=== PATIENT | female | born 1980 | race Two or more races ===

== ENCOUNTER 2019-11-30 01:13 | Emergency (ER) | payer MEDICAID ==
[~2019-11-30] VITALS: Ht 175.3 cm; Wt 108.9 kg
[2019-11-30 03:30] LABS: Basophils # (auto) 0 10 ^3/uL (0-0.2); Basophils % (auto) 0.2 % (0.0-2.0); Eosinophils # (auto) 0.2 10 ^3/uL (0-0.8); Eosinophils % (auto) 1.5 % (0.0-7.0); Hematocrit 39.1 % (36.0-46.0); Hemoglobin 13.1 g/dL (12.2-16.2); Lymphocytes # (auto) 1.2 10 ^3/uL (0.4-5.4); Lymphocytes % (auto) 7.5 % (10.0-50.0); Mean Corpuscular Hemoglobin 30.4 pg (28.0-32.0); Mean Corpuscular Hgb Conc. 33.5 g/dL (32.0-36.0); Mean Corpuscular Volume 90.7 fL (80.0-100.0); Monocytes # (auto) 0.6 10 ^3/uL (0-1.3); Monocytes % (auto) 3.6 % (0.0-12.0); Neutrophils # (auto) 13.9 10 ^3/uL (1.6-8.6); Neutrophils % (auto) 87.2 % (37.0-80.0); Platelet Count (auto) 248 10^3/uL (140-450); Red Blood Cells 4.31 10^6/uL (4.0-5.20); Red Cell Distribution Width 14.5 % (11.8-14.3); White Blood Cell 15.9 10^3/uL (4.4-10.8)
[2019-11-30 03:46] LABS: Albumin 3.3 g/dL (3.4-5.0); Potassium 3.7 mmol/L (3.5-5.1)
[2019-11-30 03:51] LABS: BUN/Creatinine Ratio 14.1; Bilirubin, Total 0.5 mg/dL (0.2-1.0); Total Protein 7.1 g/dL (6.4-8.2)
[2019-11-30 04:13] LABS: Urine Bacteria FEW /hpf (None Seen); Urine Blood TRACE /uL (Negative); Urine Mucus FEW (None Seen); Urine Specific Gravity 1.021 (1.001-1.035); Urine WBC 44 /hpf (0 - 5)
[2019-11-30] MEDS ORDERED: MORPHINE SULFATE 4 MG/ML SYR/VIAL IV ONE (04:45)
[2019-11-30] MEDS ORDERED: ONDANSETRON HCL 4 MG/2 ML VIAL IV ONE (04:45)
[2019-11-30 06:29] VITALS: BP 152/93
[2019-11-30] MEDS ORDERED: cefTRIAXone 1GM/50ML D5W 50 ML IV ONE (06:30)
[2019-11-30 08:45] LABS: Alcohol, Urine < 3.0 mg/dL (0-10); Amphetamine Screen, Urine POSITIVE (NEGATIVE); Barbiturate Scree,Urine NEGATIVE (NEGATIVE); Benzodiazephine Screen, Urine NEGATIVE (NEGATIVE); Cocaine Screen, Urine NEGATIVE (NEGATIVE); Opiate Scree,Urine NEGATIVE (NEGATIVE); Phencyclidine Screen, Urine NEGATIVE (NEGATIVE)
[2019-11-30 08:54] LABS: Cannabinoid Screen, Urine POSITIVE (NEGATIVE)
== END 2019-11-30 08:48 | disposition left against medical advice (07) ==
LOC: ER 01:16
DX: R10.31 Right lower quadrant pain (principal); R10.32 Left lower quadrant pain; F17.210 Nicotine dependence, cigarettes, uncomplicated; R00.0 Tachycardia, unspecified; I10 Essential (primary) hypertension; Z98.890 Other specified postprocedural states
CPT/HCPCS: 36415; 74176; 80053; 80307; 81001; 82150; 83690; 84702; 85025; 96365; 96375; 99285; J0696; J2270; J2405

== ENCOUNTER 2020-02-06 16:28 | Emergency (ER) | payer MEDICAID ==
[~2020-02-06] VITALS: Ht 175.3 cm; Wt 104.3 kg
[2020-02-06 16:57] VITALS: BP 166/97
[2020-02-06 18:31] LABS: Basophils # (auto) 0 10 ^3/uL (0-0.2); Basophils % (auto) 0.6 % (0.0-2.0); Eosinophils # (auto) 0.2 10 ^3/uL (0-0.8); Eosinophils % (auto) 3.2 % (0.0-7.0); Hematocrit 40.3 % (36.0-46.0); Hemoglobin 13.5 g/dL (12.2-16.2); Lymphocytes # (auto) 1.7 10 ^3/uL (0.4-5.4); Lymphocytes % (auto) 22.9 % (10.0-50.0); Mean Corpuscular Hemoglobin 30.5 pg (28.0-32.0); Mean Corpuscular Hgb Conc. 33.5 g/dL (32.0-36.0); Monocytes # (auto) 0.5 10 ^3/uL (0-1.3); Monocytes % (auto) 7.1 % (0.0-12.0); Neutrophils % (auto) 66.2 % (37.0-80.0); Nucleated Red Blood Cells % 0.1 %; Platelet Count (auto) 288 10^3/uL (140-450); Red Blood Cells 4.42 10^6/uL (4.0-5.20); Red Cell Distribution Width 14.2 % (11.8-14.3); White Blood Cell 7.6 10^3/uL (4.4-10.8)
[2020-02-06 18:41] LABS: Albumin 3.8 g/dL (3.4-5.0); BUN/Creatinine Ratio 13.7; Calcium 8.4 mg/dL (8.5-10.1); Potassium 3.6 mmol/L (3.5-5.1)
[2020-02-06 18:44] LABS: Bilirubin, Total 0.5 mg/dL (0.2-1.0); Total Protein 7.2 g/dL (6.4-8.2)
[2020-02-06 20:11] LABS: Urine Bacteria FEW /hpf (None Seen); Urine Blood 1+ /uL (Negative); Urine Hyaline Cast FEW /lpf (0 - 2); Urine Mucus FEW (None Seen); Urine Specific Gravity 1.025 (1.001-1.035); Urine WBC 13 /hpf (0 - 5)
[2020-02-06 20:22] LABS: Alcohol, Urine < 3.0 mg/dL (0-10); Amphetamine Screen, Urine POSITIVE (NEGATIVE); Barbiturate Scree,Urine NEGATIVE (NEGATIVE); Benzodiazephine Screen, Urine NEGATIVE (NEGATIVE); Cannabinoid Screen, Urine POSITIVE (NEGATIVE); Cocaine Screen, Urine NEGATIVE (NEGATIVE); Opiate Scree,Urine NEGATIVE (NEGATIVE); Phencyclidine Screen, Urine NEGATIVE (NEGATIVE)
[2020-02-06] MEDS ORDERED: KETOROLAC TROMETH 60MG/2ML VIAL IM ONE (20:30)
[2020-02-06] MEDS ORDERED: cefTRIAXone SOD 1,000 MG VL IM ONE (20:30)
== END 2020-02-06 21:50 | disposition left against medical advice (07) ==
LOC: ER 16:28
DX: R10.30 Lower abdominal pain, unspecified (principal); N39.0 Urinary tract infection, site not specified; E86.0 Dehydration; F12.10 Cannabis abuse, uncomplicated; F15.10 Other stimulant abuse, uncomplicated; F17.200 Nicotine dependence, unspecified, uncomplicated; I10 Essential (primary) hypertension
CPT/HCPCS: 36415; 76856; 80053; 80307; 81001; 84702; 85025; J0696; J1885

== ENCOUNTER 2020-06-11 17:58 | Emergency (ER) | payer MEDICAID ==
[~2020-06-11] VITALS: Ht 175.3 cm; Wt 104.3 kg
[2020-06-11 18:04] VITALS: BP 209/109
[2020-06-11] MEDS ORDERED: cloNIDine HCL 0.1 MG TAB PO ONE (18:15)
[2020-06-11] MEDS ORDERED: cefTRIAXone W LIDOCAINE 750MG IM IM ONE (19:15)
[2020-06-11 19:32] LABS: Urine Bacteria NONE SEEN /hpf (None Seen); Urine Blood Negative /uL (Negative); Urine Mucus FEW (None Seen); Urine WBC 2 /hpf (0 - 5)
[2020-06-13 06:06] LABS: RPR Non Reactive (Non Reactive)
== END 2020-06-11 20:08 | disposition left against medical advice (07) ==
LOC: ER 17:58
DX: N39.0 Urinary tract infection, site not specified (principal); Z53.21 Procedure and treatment not carried out due to patient leaving prior to being seen by health care provider
CPT/HCPCS: 81001; 86592; 87491; 87591; J0696

== ENCOUNTER 2021-10-14 02:29 | Emergency (ER) | payer MEDICAID ==
[2021-10-15] MEDS ORDERED: NAP500T PO (17:03)
[2021-10-15] MEDS ORDERED: ATEN-60 PO (17:03)
[2021-10-15] MEDS ORDERED: OLME40TA26 PO (17:03)
== END 2021-10-14 03:38 | disposition left against medical advice (07) ==
LOC: ER 02:29
DX: R22.2 Localized swelling, mass and lump, trunk (principal); Z53.21 Procedure and treatment not carried out due to patient leaving prior to being seen by health care provider

== ENCOUNTER 2021-10-15 08:19 | Emergency (ER) | payer MEDICAID ==
[~2021-10-15] VITALS: Ht 175.3 cm; Wt 111.0 kg
[2021-10-15] MEDS ORDERED: cloNIDine HCL 0.1 MG TAB PO ONE (09:00)
[2021-10-15 09:16] LABS: Basophils # (auto) 0.1 10 ^3/uL (0-0.2); Basophils % (auto) 0.6 % (0.0-2.0); Eosinophils # (auto) 0.4 10 ^3/uL (0-0.8); Eosinophils % (auto) 4.1 % (0.0-7.0); Hematocrit 40.6 % (36.0-46.0); Hemoglobin 13.3 g/dL (12.2-16.2); Lymphocytes # (auto) 1.9 10 ^3/uL (0.4-5.4); Lymphocytes % (auto) 20.3 % (10.0-50.0); Mean Corpuscular Hemoglobin 29.9 pg (28.0-32.0); Mean Corpuscular Hgb Conc. 32.8 g/dL (32.0-36.0); Mean Corpuscular Volume 91.1 fL (80.0-100.0); Monocytes # (auto) 0.6 10 ^3/uL (0-1.3); Monocytes % (auto) 6.2 % (0.0-12.0); Neutrophils # (auto) 6.5 10 ^3/uL (1.6-8.6); Neutrophils % (auto) 68.8 % (37.0-80.0); Red Blood Cells 4.45 10^6/uL (4.0-5.20); Red Cell Distribution Width 13.5 % (11.8-14.3); White Blood Cell 9.5 10^3/uL (4.4-10.8)
[2021-10-15 09:34] LABS: Albumin 3.7 g/dL (3.4-5.0); Calcium 8.5 mg/dL (8.5-10.1); Potassium 3.7 mmol/L (3.5-5.1)
[2021-10-15 09:38] LABS: BUN/Creatinine Ratio 12.5; Bilirubin, Total 0.4 mg/dL (0.2-1.0)
[2021-10-15] MEDS ORDERED: LABETALOL HCL 5 MG/ML 4ML SYRINGE IV ONE (11:00)
[2021-10-15 11:15] LABS: Urine Bacteria NONE SEEN /hpf (None Seen); Urine Blood Negative /uL (Negative); Urine WBC 2 /hpf (0 - 5)
[2021-10-15 11:22] LABS: Alcohol, Urine < 3.0 mg/dL (0-10); Amphetamine Screen, Urine POSITIVE (NEGATIVE); Barbiturate Scree,Urine NEGATIVE (NEGATIVE); Benzodiazephine Screen, Urine NEGATIVE (NEGATIVE); Cannabinoid Screen, Urine NEGATIVE (NEGATIVE); Cocaine Screen, Urine NEGATIVE (NEGATIVE); Opiate Scree,Urine NEGATIVE (NEGATIVE); Phencyclidine Screen, Urine NEGATIVE (NEGATIVE)
[2021-10-15] MEDS ORDERED: hydrALAZINE HCL 20 MG/ML VL IV ONE (11:30)
[2021-10-15] MEDS ORDERED: FUROSEMIDE 40 MG/4 ML VIAL IV ONE (14:45)
[2021-10-15] MEDS ORDERED: ATEN-60 PO (17:03)
[2021-10-15] MEDS ORDERED: OLME40TA26 PO (17:03)
[2021-10-15] MEDS ORDERED: NAP500T PO (17:03)
[2021-10-15 17:15] VITALS: BP 161/101
== END 2021-10-15 17:20 | disposition home or self-care (01) ==
LOC: ER 08:19
DX: I10 Essential (primary) hypertension (principal); F15.10 Other stimulant abuse, uncomplicated; N83.202 Unspecified ovarian cyst, left side; F17.210 Nicotine dependence, cigarettes, uncomplicated; F12.10 Cannabis abuse, uncomplicated; Z79.899 Other long term (current) drug therapy
CPT/HCPCS: 36415; 71046; 76856; 80053; 80307; 81001; 83880; 84484; 85025; 93005; 96374; 96375; 99285; J0360; J1940; J3490

== ENCOUNTER 2021-12-20 18:52 | Emergency (ER) | payer MEDICAID ==
[~2021-12-20] VITALS: Ht 175.3 cm; Wt 121.6 kg
[~2021-12-20 18:52] MED LIST: ATEN-60 PO; NAP500T PO; OLME40TA26 PO
[2021-12-20] MEDS ORDERED: TETANUS-DIPTH-ACEL PERTUSSIS 0.5ML SYR Tdap IM ONE (23:00)
[2021-12-20] MEDS ORDERED: HYDROcodone-ACET 5/325MG TAB PO ONE (23:00)
[2021-12-20] MEDS ORDERED: ONDANSETRON ODT 4 MG TAB PO ONE (23:00)
[2021-12-20] MEDS ORDERED: LIDOCAINE 1% HCL (LOCAL ANESTH.) INJ 20ML MDV ID ONE (23:45)
[2021-12-21] MEDS ORDERED: CEPH-510 PO (00:06)
[2021-12-21] MEDS ORDERED: ACET-1158 PO (00:06)
[2021-12-21] MEDS ORDERED: cloNIDine HCL 0.1 MG TAB PO ONE (00:30)
[2021-12-21 01:33] VITALS: BP 190/109
== END 2021-12-21 02:20 | disposition left against medical advice (07) ==
LOC: ER 18:54
DX: S61.210A Laceration without foreign body of right index finger without damage to nail, initial encounter (principal); F12.10 Cannabis abuse, uncomplicated; I10 Essential (primary) hypertension; F17.210 Nicotine dependence, cigarettes, uncomplicated; W22.8XXA Striking against or struck by other objects, initial encounter; Y93.89 Activity, other specified; Y92.89 Other specified places as the place of occurrence of the external cause; Y99.8 Other external cause status
CPT/HCPCS: 12001; 73140; 90471; 90715; 99283; J2001; Q0162

== ENCOUNTER 2023-02-16 11:58 | Emergency (ER) | payer MEDICAID ==
[~2023-02-16] VITALS: Ht 175.3 cm; Wt 110.2 kg
[~2023-02-16 11:58] MED LIST changes: +ACET500T58 PO; +CEPH-510 PO; -OLME40TA26 PO; +OLME40TA78 PO
[2023-02-16 13:50] LABS: Basophils # (auto) 0.1 10 ^3/uL (0-0.2); Basophils % (auto) 0.3 % (0.0-2.0); Eosinophils # (auto) 0.6 10 ^3/uL (0-0.8); Eosinophils % (auto) 3.4 % (0.0-7.0); Hematocrit 42.8 % (36.0-46.0); Hemoglobin 14.2 g/dL (12.2-16.2); Lymphocytes % (auto) 11.5 % (10.0-50.0); Mean Corpuscular Hemoglobin 29.9 pg (28.0-32.0); Mean Corpuscular Hgb Conc. 33.1 g/dL (32.0-36.0); Mean Corpuscular Volume 90.6 fL (80.0-100.0); Monocytes # (auto) 1.3 10 ^3/uL (0-1.3); Monocytes % (auto) 7.4 % (0.0-12.0); Neutrophils # (auto) 13.5 10 ^3/uL (1.6-8.6); Neutrophils % (auto) 77.4 % (37.0-80.0); Nucleated Red Blood Cells % 0.1 %; Red Blood Cells 4.73 10^6/uL (4.0-5.20); White Blood Cell 17.4 10^3/uL (4.4-10.8)
[2023-02-16 14:11] LABS: Alanine Aminotransferase 20 U/L (7-40); Albumin 4.7 g/dL (3.2-4.8); Alkaline Phosphatase 80 U/L (46-116); Anion Gap 9 (5-15); Aspartate Aminotransferase 14 U/L (13-40); BUN/Creatinine Ratio 12.4 (10.0-20.0); Blood Urea Nitrogen 19 mg/dL (9-23); Calcium 9.3 mg/dL (8.7-10.4); Carbon Dioxide 26 mmol/L (20-30); Chloride 101 mmol/L (98-107); Glucose 87 mg/dL (74-106); Magnesium 1.9 mg/dL (1.6-2.6); Sodium 136 mmol/L (136-145)
[2023-02-16 14:12] LABS: Bilirubin, Total 0.4 mg/dL (0.2-1.0); Total Protein 7.3 g/dL (5.7-8.2)
[2023-02-16 14:43] LABS: Amphetamine Screen, Urine Neg (NEGATIVE); Barbiturate Scree,Urine Neg (NEGATIVE); Benzodiazephine Screen, Urine Neg (NEGATIVE); Cannabinoid Screen, Urine Neg (NEGATIVE); Cocaine Screen, Urine Neg (NEGATIVE); Opiate Scree,Urine Neg (NEGATIVE); Phencyclidine Screen, Urine Neg (NEGATIVE)
[2023-02-16 14:48] LABS: Urine Bacteria FEW /hpf (None Seen); Urine Blood Negative /uL (Negative); Urine Clarity HAZY (Clear); Urine Color Yellow (Yellow); Urine Hyaline Cast FEW /lpf (0 - 2); Urine Mucus FEW (None Seen); Urine Protein, UAD 1+ (Negative); Urine Specific Gravity 1.024 (1.001-1.035); Urine Urobilinogen Normal (Negative); Urine WBC 4 /hpf (0 - 5); Urine pH 5.5 (5.0-8.0)
[2023-02-16] MEDS ORDERED: CEPHALEXIN 250 MG CAP PO ONE ×2 (17:45→18:10)
[2023-02-16] MEDS ORDERED: CEPH500T PO (17:50)
[2023-02-16] MEDS ORDERED: ACET-1304 PO (17:50)
[2023-02-16] MEDS ORDERED: PHEN95TA10 PO (17:50)
[2023-02-16 18:14] VITALS: BP 111/62; PULSE 94; RESP 18; TEMP 97.8; O2SAT 97
== END 2023-02-16 18:16 | disposition home or self-care (01) ==
LOC: ER 11:58
DX: R55 Syncope and collapse (principal); N39.0 Urinary tract infection, site not specified; I10 Essential (primary) hypertension; Z32.02 Encounter for pregnancy test, result negative; Z79.899 Other long term (current) drug therapy
CPT/HCPCS: 36415; 70450; 80053; 80307; 81001; 81025; 82962; 83735; 84484; 85025; 93005

== ENCOUNTER 2024-04-04 12:55 | Inpatient (IN) | payer MEDICAID ==
[~2024-04-04] VITALS: Ht 175.3 cm; Wt 108.1 kg
[~2024-04-04 12:55] MED LIST changes: +ACET-1304 PO; +CEPH500T PO; +PHEN95TA10 PO
--- NOTE | 2024-04-04 13:29 | ED.PDOC ---
History of Present Illness HPI Comments 43 year old female presents to the ED with a chief complaint of RT suprapubic pain onset today. Patient states she has surgery scheduled next month her inguinal hernia repair, was at work when she began experiencing 10/10 pain, RT suprapubic region. PMHx of HTN. Denies chest pain, shortness of breath, nausea, vomiting, diarrhea, dizziness, blurry vision. No other symptoms or modifying factors present at this time. Chief Complaint: Abdominal Pain Time Seen by MD: 13:03 Primary Care Provider: UNKNOWN Reviewed Notes: Medications, Allergies Allergies: Coded Allergies: NO KNOWN ALLERGIES (Unverified , 05/13/12) Home Meds Active Scripts Acetaminophen (Tylenol Extra Strength) 500 Mg Tab, 500 MG PO QIDPRN for 10 Days, #40 TAB Prov:RACHAEL MCKEON DO 02/16/23 Phenazopyridine Hcl (Azo Tabs) 95 Mg Tab, 95 MG PO TIDPRN PRN for 4 Days, #12 TAB Prov:RACHAEL MCKEON DO 02/16/23 Cephalexin Monohydrate (Cephalexin) 500 Mg Tab, 1 TAB PO QID for 7 Days, #28 TAB Prov:RACHAEL MCKEON DO 02/16/23 Acetaminophen (Acetaminophen) 500 Mg Tab, 500 MG PO QIDP, #30 TAB 0 Refills Prov:CATRACHITA CHAMBERLAIN 12/21/21 Cephalexin ( Keflex 500) 500 Mg Cap, 1 CAP PO BID for 7 Days, #14 CAP 0 Refills Prov:CATRACHITA CHAMBERLAIN 12/21/21 Naproxen (NAPROSYN TABLET) 500 Mg Tb, 1 TAB PO BID for 10 Days, #20 TAB 1 Refill Prov:SRINIVASAN MACK MD 10/15/21 Atenolol (Atenolol) 25 Mg Tab, 1 TAB PO DAILY for 30 Days, #30 TAB 5 Refills Prov:SRINIVASAN MACK MD 10/15/21 Olmesartan Medoxomil (Benicar) 40 Mg Tab, 1 TAB PO DAILY PRN for 30 Days, #30 TAB 5 Refills Prov:SRINIVASAN MACK MD 10/15/21 Information Source: Patient Mode of Arrival: Ambulatory Severity: Moderate Timing: Hours Duration: Since onset Prehospital treatment: None Past Medical History PAST MEDICAL HISTORY: HTN 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 Family History Family History: Unknown Social History Smoker: Non-Smoker Alcohol: Denies ETOH Use Drugs: Denies Drug Use Lives In: Home Constitutional: denies: chills, diaphoresis, fatigue, fever, malaise, sweats, weakness, others EENTM: denies: blurred vision, double vision, ear bleeding, ear discharge, ear drainage, ear pain, ear ringing, eye pain, eye redness, hearing loss, mouth pain, mouth swelling, nasal discharge, nose bleeding, nose congestion, nose pain, photophobia, tearing, throat pain, throat swelling, voice changes, others Respiratory: denies: cough, hemoptysis, orthopnea, SOB at rest, shortness of breath, SOB with excertion, stridor, wheezing, others Cardiovascular: denies: chest pain, dizzy spells, diaphoresis, Dyspnea on exertion, edema, irregular heart beat, left arm pain, lightheadedness, palpitations, PND, syncope, others Gastrointestinal: reports: abdominal pain (RT suprapubic region); denies: abdomen distended, blood streaked bowels, constipated, diarrhea, dysphagia, difficulty swallowing, hematemesis, melena, nausea, poor appetite, poor fluid intake, rectal bleeding, rectal pain, vomiting, others Genitourinary: denies: abnormal vagina bleeding, burning, dyspareunia, dysuria, flank pain, frequency, hematuria, incontinence, pain, , vagina d ischarge, urgency, others Neurological: denies: dizziness, fainting, headache, left sided numbness, left sided weakness, numbness, paresthesia, pre-existing deficit, right sided numbness, right sided weakness, seizure, speech problems, tingling, tremors, weakness, others Musculoskeletal: denies: back pain, gout, joint pain, joint swelling, muscle pain, muscle stiffness, neck pain, others Integumetry: denies: bruises, change in color, change in hair/nails, dryness, laceration, lesions, lumps, rash, wounds, others Allergic/Immunocompromised: denies: Difficulty Healing, Frequent Infections, Hives, Itching, others Hematologic/Lymphatic: denies: anemia, blood clots, easy bleeding, easy bruising, swollen glands, others Endocrine: denies: excessive hunger, excessive sweating, excessive thirst, excessive urination, flushing, intolerance to cold, intolerance to heat, unexplained weight gain, unexplained weight loss, others Psychiatric: denies: anxiety, bipolar disorder, depression, hopeless, panic disorder, schizophrenia, sleepless, suicidal, others All Other Systems: Reviewed and Negative Physical Exam General Appearance: Moderate Distress, Normal, Other (tearful ) HEENT: Normal ENT Inspection, Pharynx Normal, TMs Normal Neck: Full Range of Motion, Non-Tender, Normal, Normal Inspection Respiratory: Chest Non-Tender, Lungs Clear, No Accessory Muscle Use, No Respiratory Distress, Normal Breath Sounds Cardiovascular: No Edema, No JVD, No Murmur, No Gallop, Normal Peripheral Pulses, Regular Rate/Rhythm Breast Exam: Deferred Gastrointestinal: No Organomegaly, No Pulsatile Mass, Normal Bowel Sounds, RLQ (pain) Genitalia: Deferred Pelvic: Deferred Rectal: Deferred Extremities: No calf tenderness, Normal capillary refill, Normal inspection, Normal range of motion, Non-tender, No pedal edema Musculoskeletal : Apperance: Normal 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 Was a procedure done?: No Differential Dx Considerations may include: sbo, pyelonephritis, acute cystitis, nephrolithiasis X-Ray, Labs, Meds, VS Vital Signs Date Time Temp Pulse Resp B/P (MAP) Pulse Ox O2 Delivery O2 Flow Rate FiO2 04/04/24 14:22 70 16 98 Room Air* 0 21 04/04/24 14:18 70 16 132/88 04/04/24 14:11 97.7 70 16 132/88 (103) 96 97.7 04/04/24 14:11 70 16 96 Room Air 04/04/24 14:07 98.3 74 16 126/73 (90) 96 Lab Test 04/04/24 14:32 04/04/24 14:17 Range/Units White Blood Count 7.7 4.4-10.8 10^3/uL Red Blood Count 4.22 4.0-5.20 10^6/uL Hemoglobin 12.9 12.2-16.2 g/dL Hematocrit 38.4 36.0-46.0 % Mean Corpuscular Volume 91.1 80.0-100.0 fL Mean Corpuscular Hemoglobin 30.7 28.0-32.0 pg Mean Corpuscular Hemoglobin Concent 33.7 32.0-36.0 g/dL Red Cell Distribution Width 13.2 11.8-14.3 % Platelet Count 299 140-450 10^3/uL Mean Platelet Volume 9.0 6.9-10.8 fL Neutrophils (%) (Auto) 64.4 37.0-80.0 % Lymphocytes (%) (Auto) 24.2 10.0-50.0 % Monocytes (%) (Auto) 5.4 0.0-12.0 % Eosinophils (%) (Auto) 5.5 0.0-7.0 % Basophils (%) (Auto) 0.5 0.0-2.0 % Neutrophils # (Auto) 5.0 1.6-8.6 10 ^3/uL Lymphocytes # (Auto) 1.9 0.4-5.4 10 ^3/uL Monocytes # (Auto) 0.4 0-1.3 10 ^3/uL Eosinophils # (Auto) 0.4 0-0.8 10 ^3/uL Basophils # (Auto) 0 0-0.2 10 ^3/uL Nucleated Red Blood Cells 0.0 % Prothrombin Time 11.4 9.3-11.8 sec Prothrombin Time INR 1.08 0.9-1.15 Activated Partial Thromboplast Time 27.3 24.5-34.5 SEC Sodium Level 136 136-145 mmol/L Potassium Level 3.9 3.5-5.1 mmol/L Chloride Level 104 98-107 mmol/L Carbon Dioxide Level 24 20-31 mmol/L Anion Gap 8 5-15 Blood Urea Nitrogen 19 9-23 mg/dL Creatinine 0.72 0.550-1.02 mg/dL Glomerular Filtration Rate Calc 107 >90 mL/min BUN/Creatinine Ratio 26.4 H 10.0-20.0 Serum Glucose 93 74-106 mg/dL Lactic Acid Level 0.7 0.4-2.0 mmol/L Calcium Level 9.7 8.7-10.4 mg/dL Total Bilirubin 0.2 0.2-1.0 mg/dL Aspartate Amino Transferase (AST) 22 13-40 U/L Alanine Aminotransferase (ALT) 15 7-40 U/L Alkaline Phosphatase 68 46-116 U/L Total Protein 7.0 5.7-8.2 g/dL Albumin 4.5 3.2-4.8 g/dL Urine Color Light-yellow Yellow Urine Clarity Clear Clear Urine pH 6.5 5.0-9.0 Urine Specific [place] 1.023 1.001-1.035 Urine Protein Negative Negative Urine Ketones Negative Negative Urine Blood Negative Negative /uL Urine Nitrite Negative Negative Urine Bilirubin Negative Negative Urine Urobilinogen Normal Negative mg/dL Urine Leukocyte Esterase Negative Negative /uL Urine RBC 1 0 - 4 /hpf Urine Microscopic WBC < 1 0-5 /HPF Urine Squamous Epithelial Cells Few <5 /hpf Urine Bacteria None seen None Seen /hpf Urine Glucose Normal Normal mg/dL Current Medications Medications (Trade) Dose Ordered Sig/Antonio Route Start Time Stop Time Status Last Admin Morphine Sulfate 4 mg ONCE ONCE IV 04/04/24 13:30 04/04/24 13:47 DC 04/04/24 14:18 [place] [id number] Ph: [phone] DIAGNOSTIC IMAGING Diagnostic Imaging Report : [id number] Signed PATIENT: NICKIE ANGELCCT: [id number] UNIT: [id number] : 1980 LOC: ER ROOM / BED: / AGE / SEX: 43 / F ADM STATUS: REG ER SERVICE 1328 ORDERING PHYSICIAN: PEARL LONG MD PROCEDURE(s): ABPL - CT AB PEL WO CON-NO ORAL OR IV REASON: pain ORDER NUMBER(s): [id number], ACCESSION NUMBER(s): [id number] CT ABDOMEN AND PELVIS WITHOUT CONTRAST CLINICAL HISTORY: pain TECHNIQUE: Multiple contiguous axial images of the abdomen and pelvis without intravenous contrast. The images were reformatted degenerate coronal and sagittal reconstructions. All CT scans at this medical facility are performed using dose modulation techniques as appropriate to a performed exam including the following:Automated exposure control was utilized; adjustment of the MA and/or KV according to patient size; and use of iterative reconstruction technique. Radiation Dose Information: CT Dose: CTDI volume is 14 mGy. Dose-length product is 1298 mGy*cm Comparison: RFIN2 on DOS: 12/20/21, CT ABD PELVIS WO CONTRAST on DOS: 11/30/19 FINDINGS: Evaluation of the abdomen and pelvis is limited without intravenous contrast. There is a moderate size right inguinal hernia containing intra-abdominal fat and a small bowel loop. There are some dilated fluid filled small bowel loops in the right abdomen proximal to the hernia measuring up to 3 cm. The large bowel loops demonstrate normal caliber. There are few scattered diverticula distal colon. The liver, gallbladder, pancreas, kidneys, adrenal glands, and spleen appear within normal limits. There is no gross evidence of abdominal lymphadenopathy. There is no free fluid or free air. The stomach grossly appears unremarkable. The abdominal aorta and IVC appear within normal limits. The bladder appears unremarkable for the degree of distention. Pelvic organ appears within normal limits. There is no gross evidence of a pelvic mass. There is no free fluid collection. Lung bases are clear. There is no acute osseous abnormality. IMPRESSION: 1. Moderate size right inguinal hernia containing intra-abdominal fat and a small bowel loop. This serves as a transition point with some dilated fluid- filled small bowel loops in the right abdomen proximal to the hernia suggesting developing bowel obstruction. Critical findings discussed with Dr. Long by Dr. Robin Pemberton via phone on 04/04/2024 02:22 PM. HS:Y ATED BY: ROBIN PEMBERTON MD DICTATED DATE/TIME: 04/04/241423 SIGNED BY: ROBIN PEMBERTON MD SIGNED DATE/TIME: 04/04/241423 CC: X-Ray, Labs, Meds, VS Comment This 43-year-old female with a known right inguinal hernia presents secondary to acute worsening of the pain in the right inguinal hernia. She states she was usually able to reduce here with a difficulty. However, with the course of stay, she had been unable to reduce the hernia. States the pain is severe. There is some improvements room physicians and worsening with others. She continues to pass flatus. She has no other complaints with the fever, chills, sweats, nausea or vomiting. However, the pain is exquisite. Time of 1ST Reevaluation: 13:33 Reevaluation 1ST: Unchanged Patient Education/Counseling: Diagnosis, Treatment, Prognosis Family Education/Counseling: No Family Present Additional Information The following tests were ordered, and results were reviewed by me: CBC, CMP, UA, CT ABD PEL WO CON, PTPTT, EKG, LA W/ REFLEX I reviewed and agreed with the following test results read by other providers: CT ABD PEL WO CON I discussed treatment and results with medical personnel and patient Departure 1 Departure Time of Disposition: 17:16 Impression: Primary Impression: Small bowel obstruction Additional Impressions: Right inguinal hernia Abdominal pain Disposition: ADMITTED INPATIENT Condition: Guarded Critical Care Note Critical Care Time?: No Stability Stability form required: No Heart Score Heart Score: Heart Score Response (Comments) Value History N/A 0 EKG N/A 0 Age N/A 0 Risk Factors N/A 0 Troponin N/A 0 Total 0 I personally scribed for PEARL LONG MD ([email or web address]) on 04/04/24 at 13:29. Electronically submitted by Carito Miles ([email or web address]). I personally scribed for PEARL LONG MD ([email or web address]) on 04/04/24 at 14:43. Electronically submitted by Carito Miles ([email or web address]). PEARL LONG MD Apr 04, 2024 13:29
[2024-04-04] MEDS: MORPHINE SULFATE 4 MG/ML SYR/VIAL IV ONE ×2 (14:18→17:38)
[2024-04-04 14:22] VITALS: PULSE 70; RESP 16; O2SAT 98
--- NOTE | 2024-04-04 14:27 | DVH ---
CT ABDOMEN AND PELVIS WITHOUT CONTRAST CLINICAL HISTORY: pain TECHNIQUE: Multiple contiguous axial images of the abdomen and pelvis without intravenous contrast. The images were reformatted degenerate coronal and sagittal reconstructions. All CT scans at this medical facility are performed using dose modulation techniques as appropriate t o a performed exam including the following:Automated exposure control was utilized; adjustment of the MA and/or KV according to patient size; and use of iterative reconstruction technique. Radiation Dose Information: CT Dose: CTDI volume is 14 mGy. Dose-length product is 1298 mGy*cm Comparison: RFIN2 on DOS: 12/20/21, CT ABD PELVIS WO CONTRAST on DOS: 11/30/19 FINDINGS: Evaluation of the abdomen and pelvis is limited without intravenous contrast. There is a moderate size right inguinal hernia containing intra-abdominal fat and a small bowel loop. There are some dilated fluid filled small bowel loops in the right abdomen proximal to the hernia me asuring up to 3 cm. The large bowel loops demonstrate normal caliber. There are few scattered diverti cula distal colon. The liver, gallbladder, pancreas, kidneys, adrenal glands, and spleen appear within normal limits. There is no gross evidence of abdominal lymphadenopathy. There is no free fluid or free air. The stomach grossly appears unremarkable. The abdominal aorta and IVC appear within normal limits. The bladder appears unremarkable for the degree of distention. Pelvic organ appears within normal sutton its. There is no gross evidence of a pelvic mass. There is no free fluid collection. Lung bases are clear. There is no acute osseous abnormality. IMPRESSION: 1. Moderate size right inguinal hernia containing intra-abdominal fat and a small bowel loop. This se rves as a transition point with some dilated fluid-filled small bowel loops in the right abdomen pro ximal to the hernia suggesting developing bowel obstruction. Critical findings discussed with Dr. Long by Dr. Robin Pemberton via phone on 04/04/2024 02:22 PM. HS:Y
[2024-04-04 14:52] LABS: Basophils # (auto) 0 10 ^3/uL (0-0.2); Basophils % (auto) 0.5 % (0.0-2.0); Eosinophils # (auto) 0.4 10 ^3/uL (0-0.8); Eosinophils % (auto) 5.5 % (0.0-7.0); Hematocrit 38.4 % (36.0-46.0); Hemoglobin 12.9 g/dL (12.2-16.2); Lymphocytes # (auto) 1.9 10 ^3/uL (0.4-5.4); Lymphocytes % (auto) 24.2 % (10.0-50.0); Mean Corpuscular Hemoglobin 30.7 pg (28.0-32.0); Mean Corpuscular Hgb Conc. 33.7 g/dL (32.0-36.0); Mean Corpuscular Volume 91.1 fL (80.0-100.0); Monocytes # (auto) 0.4 10 ^3/uL (0-1.3); Monocytes % (auto) 5.4 % (0.0-12.0); Neutrophils % (auto) 64.4 % (37.0-80.0); Platelet Count (auto) 299 10^3/uL (140-450); Red Blood Cells 4.22 10^6/uL (4.0-5.20); Red Cell Distribution Width 13.2 % (11.8-14.3); White Blood Cell 7.7 10^3/uL (4.4-10.8)
[2024-04-04 15:06] LABS: INR 1.08 (0.9-1.15); Partial Thromboplastin Time 27.3 SEC (24.5-34.5); Prothrombin Time 11.4 sec (9.3-11.8)
[2024-04-04 15:10] LABS: Alanine Aminotransferase 15 U/L (7-40); Alkaline Phosphatase 68 U/L (46-116); Anion Gap 8 (5-15); Aspartate Aminotransferase 22 U/L (13-40); BUN/Creatinine Ratio 26.4 (10.0-20.0); Blood Urea Nitrogen 19 mg/dL (9-23); Calcium 9.7 mg/dL (8.7-10.4); Carbon Dioxide 24 mmol/L (20-31); Chloride 104 mmol/L (98-107); Glucose 93 mg/dL (74-106); Potassium 3.9 mmol/L (3.5-5.1); Sodium 136 mmol/L (136-145)
[2024-04-04 15:11] LABS: Albumin 4.5 g/dL (3.2-4.8); Bilirubin, Total 0.2 mg/dL (0.2-1.0)
[2024-04-04 15:53] LABS: Urine Bacteria None Seen /hpf (None Seen)
[2024-04-04 16:10] LABS: Urine Blood Negative /uL (Negative); Urine Clarity Clear (Clear); Urine Color Light-Yellow (Yellow); Urine Protein, UAD Negative (Negative); Urine Specific Gravity 1.023 (1.001-1.035); Urine Squamous Epithelial Cell FEW /hpf (<5); Urine Urobilinogen Normal (Negative); Urine WBC < 1 /HPF (0-5); Urine pH 6.5 (5.0-9.0)
[2024-04-04] MEDS: ONDANSETRON HCL 4 MG/2 ML VIAL IV ONE (17:37)
[2024-04-04 19:48] VITALS: PULSE 64; RESP 14; O2SAT 96
[2024-04-04] MEDS ORDERED: ACETAMINOPHEN 325 MG TAB PO PRN (20:00)
[2024-04-04] MEDS ORDERED: HYDROcodone-ACET 5/325MG TAB PO PRN (20:00)
[2024-04-04] MEDS: D5W/LACTATED RINGERS 1,000 ML IV ONE (20:00)
--- NOTE | 2024-04-04 20:07 | DVHHP2 ---
Admitting Diagnosis: Abdominal pain History of Present Illness 43 year old female presents to the ED with a chief complaint of RT suprapubic pain onset today. Patient states she has surgery scheduled next month her inguinal hernia repair, was at work when she began experiencing 10/10 pain, RT suprapubic region. PMHx of HTN. Denies chest pain, shortness of breath, nausea, vomiting, diarrhea, dizziness, blurry vision. No other symptoms or modifying factors present at this time. 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 Family History Family History: Unknown Social History Smoker: Non-Smoker Alcohol: Denies ETOH Use Drugs: Denies Drug Use Lives In: Home Allergies: Coded Allergies: NO KNOWN ALLERGIES (Unverified , 05/13/12) Home Meds Active Scripts Acetaminophen (Tylenol Extra Strength) 500 Mg Tab, 500 MG PO QIDPRN for 10 Days, #40 TAB Prov:RACHAEL MCKEON DO 02/16/23 Phenazopyridine Hcl (Azo Tabs) 95 Mg Tab, 95 MG PO TIDPRN PRN for 4 Days, #12 TAB Prov:PUNEETSARARACHAEL DO 02/16/23 Cephalexin Monohydrate (Cephalexin) 500 Mg Tab, 1 TAB PO QID for 7 Days, #28 TAB Prov:MIKERACHAEL DO 02/16/23 Acetaminophen (Acetaminophen) 500 Mg Tab, 500 MG PO QIDP, #30 TAB 0 Refills Prov:CATRACHITA CHAMBERLAIN 12/21/21 Cephalexin ( Keflex 500) 500 Mg Cap, 1 CAP PO BID for 7 Days, #14 CAP 0 Refills Prov:CATRACHITA CHAMBERLAIN 12/21/21 Naproxen (NAPROSYN TABLET) 500 Mg Tb, 1 TAB PO BID for 10 Days, #20 TAB 1 Refill Prov:SRINIVASAN MACK MD 10/15/21 Atenolol (Atenolol) 25 Mg Tab, 1 TAB PO DAILY for 30 Days, #30 TAB 5 Refills Prov:SRINIVASAN MACK MD 10/15/21 Olmesartan Medoxomil (Benicar) 40 Mg Tab, 1 TAB PO DAILY PRN for 30 Days, #30 TAB 5 Refills Prov:SRINIVASAN MACK MD 10/15/21 Vital Signs Vital Signs Date Time Temp Pulse Resp B/P (MAP) Pulse Ox O2 Delivery O2 Flow Rate FiO2 04/04/24 19:48 64 14 96 Room Air* 0 21 04/04/24 19:47 98.0 101/69 (80) 98.0 Physical Exam 44 years old woman, overweight, lying in bed. Mild distress HEENT-atraumatic normocephalic Heart-regular rate and rhythm Lungs clear to auscultate Abdomen soft, nontender, nondistended. Inguinal hernia resolved Musculoskeletal-no edema cyanosis Neuro-AO x3, no focal deficit Results Labs Test 04/04/24 14:32 04/04/24 14:17 Range/Units White Blood Count 7.7 4.4-10.8 10^3/uL Red Blood Count 4.22 4.0-5.20 10^6/uL Hemoglobin 12.9 12.2-16.2 g/dL Hematocrit 38.4 36.0-46.0 % Mean Corpuscular Volume 91.1 80.0-100.0 fL Mean Corpuscular Hemoglobin 30.7 28.0-32.0 pg Mean Corpuscular Hemoglobin Concent 33.7 32.0-36.0 g/dL Red Cell Distribution Width 13.2 11.8-14.3 % Platelet Count 299 140-450 10^3/uL Mean Platelet Volume 9.0 6.9-10.8 fL Neutrophils (%) (Auto) 64.4 37.0-80.0 % Lymphocytes (%) (Auto) 24.2 10.0-50.0 % Monocytes (%) (Auto) 5.4 0.0-12.0 % Eosinophils (%) (Auto) 5.5 0.0-7.0 % Basophils (%) (Auto) 0.5 0.0-2.0 % Neutrophils # (Auto) 5.0 1.6-8.6 10 ^3/uL Lymphocytes # (Auto) 1.9 0.4-5.4 10 ^3/uL Monocytes # (Auto) 0.4 0-1.3 10 ^3/uL Eosinophils # (Auto) 0.4 0-0.8 10 ^3/uL Basophils # (Auto) 0 0-0.2 10 ^3/uL Nucleated Red Blood Cells 0.0 % Prothrombin Time 11.4 9.3-11.8 sec Prothrombin Time INR 1.08 0.9-1.15 Activated Partial Thromboplast Time 27.3 24.5-34.5 SEC Sodium Level 136 136-145 mmol/L Potassium Level 3.9 3.5-5.1 mmol/L Chloride Level 104 98-107 mmol/L Carbon Dioxide Level 24 20-31 mmol/L Anion Gap 8 5-15 Blood Urea Nitrogen 19 9-23 mg/dL Creatinine 0.72 0.550-1.02 mg/dL Glomerular Filtration Rate Calc 107 >90 mL/min BUN/Creatinine Ratio 26.4 H 10.0-20.0 Serum Glucose 93 74-106 mg/dL Lactic Acid Level 0.7 0.4-2.0 mmol/L Calcium Level 9.7 8.7-10.4 mg/dL Total Bilirubin 0.2 0.2-1.0 mg/dL Aspartate Amino Transferase (AST) 22 13-40 U/L Alanine Aminotransferase (ALT) 15 7-40 U/L Alkaline Phosphatase 68 46-116 U/L Total Protein 7.0 5.7-8.2 g/dL Albumin 4.5 3.2-4.8 g/dL Urine Color Light-yellow Yellow Urine Clarity Clear Clear Urine pH 6.5 5.0-9.0 Urine Specific [place] 1.023 1.001-1.035 Urine Protein Negative Negative Urine Ketones Negative Negative Urine Blood Negative Negative /uL Urine Nitrite Negative Negative Urine Bilirubin Negative Negative Urine Urobilinogen Normal Negative mg/dL Urine Leukocyte Esterase Negative Negative /uL Urine RBC 1 0 - 4 /hpf Urine Microscopic WBC < 1 0-5 /HPF Urine Squamous Epithelial Cells Few <5 /hpf Urine Bacteria None seen None Seen /hpf Urine Glucose Normal Normal mg/dL Primary Diagnosis Small bowel obstruction Reducible right inguinal hernia Plan CT scan shows small bowel obstruction and right inguinal hernia NPO IV fluids IV antiemetic IV pain control Bowel rest Once patient has bowel movement or flatus small-bowel series to evaluate for resolution of small-bowel obstruction Surgery consult for SBO Full code SCD for DVT prophylaxis PPI for GI prophylaxis NPO except meds Plan discussed with: Patient Date of Service: Apr 04, 2024 Billing Provider: KHALIF SULTANA MD Common Visit Codes: [id number] INP/OBS CARE (HIGH) KHALIF SULTANA MD Apr 04, 2024 20:07
[2024-04-04] MEDS: ONDANSETRON HCL 4 MG/2 ML VIAL IV PRN (20:21)
[2024-04-04] MEDS: HYDROmorphone HCL 2 MG/ML VL/or syr IV PRN (20:22)
[2024-04-04] MEDS: DOCUSATE SOD 100 MG CAP PO PRN (20:35)
[2024-04-04 21:41] VITALS: BP 100/57; PULSE 62; RESP 17; TEMP 97.7; O2SAT 97
[2024-04-04 21:44] VITALS: BP 100/57; PULSE 62; RESP 17; TEMP 97.7; O2SAT 91
[2024-04-04] MEDS: MELATONIN 5 MG TAB PO SCH (22:32)
[2024-04-04] MEDS: SODIUM CHLOR 0.9% PF (SALINE LOCK) 10ML VIAL/SYR IV SCH (22:33)
[2024-04-04] MEDS ORDERED: LISI40TA16 PO (23:08)
[2024-04-05 00:17] VITALS: BP 94/46; PULSE 60; RESP 16; TEMP 97.7; O2SAT 92
[2024-04-05 01:00] VITALS: BP 107/61; PULSE 62; RESP 16; TEMP 97.7; O2SAT 98
[2024-04-05 05:00] VITALS: BP 102/55; PULSE 57; RESP 16; TEMP 98; O2SAT 94
[2024-04-05 05:44] LABS: Basophils # (auto) 0 10 ^3/uL (0-0.2); Basophils % (auto) 0.7 % (0.0-2.0); Eosinophils # (auto) 0.5 10 ^3/uL (0-0.8); Eosinophils % (auto) 8.3 % (0.0-7.0); Hematocrit 32.8 % (36.0-46.0); Hemoglobin 11.2 g/dL (12.2-16.2); Lymphocytes # (auto) 1.8 10 ^3/uL (0.4-5.4); Lymphocytes % (auto) 32.2 % (10.0-50.0); Mean Corpuscular Hemoglobin 30.8 pg (28.0-32.0); Mean Corpuscular Hgb Conc. 34.1 g/dL (32.0-36.0); Mean Corpuscular Volume 90.3 fL (80.0-100.0); Monocytes # (auto) 0.4 10 ^3/uL (0-1.3); Neutrophils # (auto) 2.9 10 ^3/uL (1.6-8.6); Neutrophils % (auto) 50.8 % (37.0-80.0); Platelet Count (auto) 255 10^3/uL (140-450); Red Blood Cells 3.63 10^6/uL (4.0-5.20); White Blood Cell 5.6 10^3/uL (4.4-10.8)
[2024-04-05 07:03] LABS: Alanine Aminotransferase 13 U/L (7-40); Albumin 3.6 g/dL (3.2-4.8); Alkaline Phosphatase 50 U/L (46-116); Anion Gap 5 (5-15); Aspartate Aminotransferase 13 U/L (13-40); BUN/Creatinine Ratio 18.8 (10.0-20.0); Bilirubin, Total 0.4 mg/dL (0.2-1.0); Blood Urea Nitrogen 13 mg/dL (9-23); Calcium 9.1 mg/dL (8.7-10.4); Carbon Dioxide 27 mmol/L (20-31); Chloride 106 mmol/L (98-107); Glucose 86 mg/dL (74-106); Potassium 3.9 mmol/L (3.5-5.1); Sodium 138 mmol/L (136-145); Total Protein 5.7 g/dL (5.7-8.2)
[2024-04-05 08:05] VITALS: RESP 17; O2SAT 94
[2024-04-05 09:00] VITALS: BP 106/67; PULSE 62; RESP 16; TEMP 97.6; O2SAT 94
--- NOTE | 2024-04-05 12:11 | DVHINCON2 ---
Date of service: Apr 05, 2024 Family History: Patient reports no known family medical history. Allergies: Coded Allergies: NO KNOWN ALLERGIES (Unverified , 05/13/12) Home Meds Active Scripts Acetaminophen (Tylenol Extra Strength) 500 Mg Tab, 500 MG PO QIDPRN for 10 Days, #40 TAB Prov:RACHAEL MCKEON DO 02/16/23 Phenazopyridine Hcl (Azo Tabs) 95 Mg Tab, 95 MG PO TIDPRN PRN for 4 Days, #12 TAB Prov:RACHAEL MCKEON DO 02/16/23 Cephalexin Monohydrate (Cephalexin) 500 Mg Tab, 1 TAB PO QID for 7 Days, #28 TAB Prov:RACHAEL MCKEON DO 02/16/23 Acetaminophen (Acetaminophen) 500 Mg Tab, 500 MG PO QIDP, #30 TAB 0 Refills Prov:CATRACHITA CHAMBERLAIN 12/21/21 Cephalexin ( Keflex 500) 500 Mg Cap, 1 CAP PO BID for 7 Days, #14 CAP 0 Refills Prov:CATRACHITA CHAMBERLAIN 12/21/21 Naproxen (NAPROSYN TABLET) 500 Mg Tb, 1 TAB PO BID for 10 Days, #20 TAB 1 Refill Prov:SRINIVASAN MACK MD 10/15/21 Atenolol (Atenolol) 25 Mg Tab, 1 TAB PO DAILY for 30 Days, #30 TAB 5 Refills Prov:SRINIVASAN MACK MD 10/15/21 Olmesartan Medoxomil (Benicar) 40 Mg Tab, 1 TAB PO DAILY PRN for 30 Days, #30 TAB 5 Refills Prov:SRINIVASAN MACK MD 10/15/21 Reported Medications Lisinopril (Lisinopril) 40 Mg Tab, 40 MG PO DAILY for 30 Days, MG 04/04/24 Current Medications Current Medications Medications (Trade) Dose Ordered Sig/Antonio Route PRN Reason Start Time Stop Time Status Last Admin Sodium Chloride (Saline Lock Ns) 10 ml Q8HR IV 04/04/24 22:00 04/05/24 06:00 Docusate Sodium (Colace Capsule) 100 mg BIDPRN PRN PO FOR CONSTIPATION 04/04/24 20:00 04/04/24 20:35 Acetaminophen (Tylenol Tablet) 650 mg Q6HP PRN PO PAIN SCALE 1-3 OR TEMP>100.4 04/04/24 20:00 Acetaminophen/ Hydrocodone Bitart ([place] 5/325MG Tab) 1 tab Q4HP PRN PO MODERATE PAIN (4-6 PAIN SCALE) 04/04/24 20:00 Hydromorphone HCl (Dilaudid Injection) 0.5 mg Q4HP PRN IV SEVERE PAIN (7-10 PAIN SCALE) 04/04/24 20:00 04/05/24 08:13 Ondansetron HCl (Zofran) 4 mg Q4HP PRN IV NAUSEA / VOMITING 04/04/24 20:00 04/04/24 20:21 Melatonin (Melatonin) 5 mg HS PO 04/04/24 22:00 04/04/24 22:32 Vital Signs Vital Signs Date Time Temp Pulse Resp B/P (MAP) Pulse Ox O2 Delivery O2 Flow Rate FiO2 04/05/24 09:00 97.6 62 16 106/67 (80) 94 97.6 04/05/24 08:05 Room Air* 0 21 Labs/Diagnostic Data Labs Test 04/05/24 04:36 04/04/24 14:32 04/04/24 14:17 Range/Units White Blood Count 5.6 # 4.4-10.8 10^3/uL Red Blood Count 3.63 L 4.0-5.20 10^6/uL Hemoglobin 11.2 L 12.2-16.2 g/dL Hematocrit 32.8 #L 36.0-46.0 % Mean Corpuscular Volume 90.3 80.0-100.0 fL Mean Corpuscular Hemoglobin 30.8 28.0-32.0 pg Mean Corpuscular Hemoglobin Concent 34.1 32.0-36.0 g/dL Red Cell Distribution Width 13.0 11.8-14.3 % Platelet Count 255 140-450 10^3/uL Mean Platelet Volume 9.4 6.9-10.8 fL Neutrophils (%) (Auto) 50.8 37.0-80.0 % Lymphocytes (%) (Auto) 32.2 10.0-50.0 % Monocytes (%) (Auto) 8.0 0.0-12.0 % Eosinophils (%) (Auto) 8.3 H 0.0-7.0 % Basophils (%) (Auto) 0.7 0.0-2.0 % Neutrophils # (Auto) 2.9 1.6-8.6 10 ^3/uL Lymphocytes # (Auto) 1.8 0.4-5.4 10 ^3/uL Monocytes # (Auto) 0.4 0-1.3 10 ^3/uL Eosinophils # (Auto) 0.5 0-0.8 10 ^3/uL Basophils # (Auto) 0 0-0.2 10 ^3/uL Nucleated Red Blood Cells 0.0 % Sodium Level 138 136-145 mmol/L Potassium Level 3.9 3.5-5.1 mmol/L Chloride Level 106 98-107 mmol/L Carbon Dioxide Level 27 20-31 mmol/L Anion Gap 5 5-15 Blood Urea Nitrogen 13 9-23 mg/dL Creatinine 0.69 0.550-1.02 mg/dL Glomerular Filtration Rate Calc 111 >90 mL/min BUN/Creatinine Ratio 18.8 10.0-20.0 Serum Glucose 86 74-106 mg/dL Calcium Level 9.1 8.7-10.4 mg/dL Total Bilirubin 0.4 0.2-1.0 mg/dL Aspartate Amino Transferase (AST) 13 13-40 U/L Alanine Aminotransferase (ALT) 13 7-40 U/L Alkaline Phosphatase 50 46-116 U/L Total Protein 5.7 5.7-8.2 g/dL Albumin 3.6 3.2-4.8 g/dL Prothrombin Time 11.4 9.3-11.8 sec Prothrombin Time INR 1.08 0.9-1.15 Activated Partial Thromboplast Time 27.3 24.5-34.5 SEC Lactic Acid Level 0.7 0.4-2.0 mmol/L Urine Color Light-yellow Yellow Urine Clarity Clear Clear Urine pH 6.5 5.0-9.0 Urine Specific [place] 1.023 1.001-1.035 Urine Protein Negative Negative Urine Ketones Negative Negative Urine Blood Negative Negative /uL Urine Nitrite Negative Negative Urine Bilirubin Negative Negative Urine Urobilinogen Normal Negative mg/dL Urine Leukocyte Esterase Negative Negative /uL Urine RBC 1 0 - 4 /hpf Urine Microscopic WBC < 1 0-5 /HPF Urine Squamous Epithelial Cells Few <5 /hpf Urine Bacteria None seen None Seen /hpf Urine Glucose Normal Normal mg/dL Assessment 43 YEAR OLD FEMALE WITH ESTABLISHED PRIOR DIAGNOSIS OF RIGHT INGUINAL HERNIA PRESENTED TO THE EMERGENCY ROOM WITH "ENTRAPPED " HERNIA,SEVERE PAIN AND NAUSEA, NOW HERNIA "NO LONGER HURTING", NO NAUSEA, HERNIA IS EASILY REDUCIBLE AND NON TENDER, SHE HAS AN ESTABLISHED SURGEON AND SCHEDULED OPERATION IN [place] i TOLD HER THAT ALTHOUGH THE ACUTE PROBLEM COULD RECUR, THERE IS A GOOD CHANCE SHE MAY BE ABLE TO WAIT FOR HER SCHEDULED OPERATION. WILL ALLOW PO INTAKE, RECALL ME IF NEEDED, AT THE PRESENT TIME THERE IS NO INDICATION FOR EMERGENCY SURGICAL INTERVENTION Plan discussed with: Patient ROLA MEYER MD Apr 05, 2024 12:11
--- NOTE | 2024-04-05 12:16 | DVHPN2 ---
Reviewed: Care Plan, H&P, Labs, Medications, Previous Orders, Radiology Changes from previous H/P or p: No Changes Objective Vitals Vital Signs Date Time Temp Pulse Resp B/P (MAP) Pulse Ox O2 Delivery O2 Flow Rate FiO2 04/05/24 11:30 71 16 109/69 04/05/24 09:00 97.6 94 97.6 04/05/24 08:05 Room Air* 0 21 Intake/Output Intake and Output 04/05/24 07:00 Intake Total 675 ml Balance 675 ml Intake Oral 0 ml IV Total 675 ml # Voids 4 Medications Current Medications Medications Dose Ordered Sig/Antonio Route Start Time Stop Time Status Last Admin Dose Admin Sodium Chloride 10 ml Q8HR IV 04/04/24 22:00 04/05/24 06:00 10 ML Docusate Sodium 100 mg BIDPRN PRN PO 04/04/24 20:00 04/04/24 20:35 100 MG Acetaminophen 650 mg Q6HP PRN PO 04/04/24 20:00 Acetaminophen/ Hydrocodone Bitart 1 tab Q4HP PRN PO 04/04/24 20:00 Hydromorphone HCl 0.5 mg Q4HP PRN IV 04/04/24 20:00 04/05/24 08:13 0.5 MG Ondansetron HCl 4 mg Q4HP PRN IV 04/04/24 20:00 04/04/24 20:21 4 MG Melatonin 5 mg HS PO 04/04/24 22:00 04/04/24 22:32 5 MG Laboratory Results Laboratory Tests 04/05/24 04:36 Chemistry Test 04/04/24 14:32 04/05/24 04:36 Albumin 4.5 g/dL (3.2-4.8) 3.6 g/dL (3.2-4.8) Calcium Level 9.7 mg/dL (8.7-10.4) 9.1 mg/dL (8.7-10.4) Total Protein 7.0 g/dL (5.7-8.2) 5.7 g/dL (5.7-8.2) Coagulation Test 04/04/24 14:32 Prothrombin Time 11.4 sec (9.3-11.8) Prothrombin Time INR 1.08 (0.9-1.15) Activated Partial Thromboplast Time 27.3 SEC (24.5-34.5) LFT Test 04/04/24 14:32 04/05/24 04:36 Alanine Aminotransferase (ALT) 15 U/L (7-40) 13 U/L (7-40) Alkaline Phosphatase 68 U/L (46-116) 50 U/L (46-116) Aspartate Amino Transferase (AST) 22 U/L (13-40) 13 U/L (13-40) Total Bilirubin 0.2 mg/dL (0.2-1.0) 0.4 mg/dL (0.2-1.0) Urinalysis Test 04/04/24 14:17 Urine Color Light-yellow (Yellow) Urine Clarity Clear (Clear) Urine pH 6.5 (5.0-9.0) Urine Specific [place] 1.023 (1.001-1.035) Urine Protein Negative (Negative) Urine Ketones Negative (Negative) Urine Blood Negative /uL (Negative) Urine Nitrite Negative (Negative) Urine Bilirubin Negative (Negative) Urine Urobilinogen Normal mg/dL (Negative) Urine Leukocyte Esterase Negative /uL (Negative) Urine RBC 1 /hpf (0 - 4) Urine Microscopic WBC < 1 /HPF (0-5) Urine Squamous Epithelial Cells Few /hpf (<5) Urine Bacteria None seen /hpf (None Seen) Urine Glucose Normal mg/dL (Normal) Labs and/or images reviewed: Labs reviewed by me, Image(s) reviewed by me Assessment/Plan Assessment/Plan Acute abdominal pain Acute small bowel obstruction secondary to right inguinal hernia: Surgical consult for : Dr. Puga spoke to me and advised to advanced diet and discharge home. She has an appointment with the surgeon in [place] in two weeks for the inguinal hernia surgery Hypertension Acute dehydration: IV fluids Patient requesting to be discharged home today Plan discussed with: Patient My Orders Orders - ANNA MARIE CHENEY MD Procedure Category Date Status Time * Surgical Consult CONS 04/05/24 Transmitted 12:09 Date of Service: Apr 05, 2024 Billing Provider: ANNA MARIE CHENEY MD Common Visit Codes: [id number] INP/OBS CARE(HIGH) ANNA MARIE CHENEY MD Apr 05, 2024 12:16
--- NOTE | 2024-04-05 12:20 | DVHDS2 ---
Discharge Summary Date of Admission Apr 04, 2024 at 20:00 Date of Discharge: Apr 05, 2024 Admitting Diagnosis Abdominal pain Wounds: None Labs/Diagnostic Data: Laboratory Results Test 04/05/24 04:36 04/04/24 14:32 04/04/24 14:17 White Blood Count 5.6 10^3/uL (4.4-10.8) Red Blood Count 3.63 10^6/uL (4.0-5.20) Hemoglobin 11.2 g/dL (12.2-16.2) Hematocrit 32.8 % (36.0-46.0) Mean Corpuscular Volume 90.3 fL (80.0-100.0) Mean Corpuscular Hemoglobin 30.8 pg (28.0-32.0) Mean Corpuscular Hemoglobin Concent 34.1 g/dL (32.0-36.0) Red Cell Distribution Width 13.0 % (11.8-14.3) Platelet Count 255 10^3/uL (140-450) Mean Platelet Volume 9.4 fL (6.9-10.8) Neutrophils (%) (Auto) 50.8 % (37.0-80.0) Lymphocytes (%) (Auto) 32.2 % (10.0-50.0) Monocytes (%) (Auto) 8.0 % (0.0-12.0) Eosinophils (%) (Auto) 8.3 % (0.0-7.0) Basophils (%) (Auto) 0.7 % (0.0-2.0) Neutrophils # (Auto) 2.9 10 ^3/uL (1.6-8.6) Lymphocytes # (Auto) 1.8 10 ^3/uL (0.4-5.4) Monocytes # (Auto) 0.4 10 ^3/uL (0-1.3) Eosinophils # (Auto) 0.5 10 ^3/uL (0-0.8) Basophils # (Auto) 0 10 ^3/uL (0-0.2) Nucleated Red Blood Cells 0.0 % Sodium Level 138 mmol/L (136-145) Potassium Level 3.9 mmol/L (3.5-5.1) Chloride Level 106 mmol/L (98-107) Carbon Dioxide Level 27 mmol/L (20-31) Anion Gap 5 (5-15) Blood Urea Nitrogen 13 mg/dL (9-23) Creatinine 0.69 mg/dL (0.550-1.02) Glomerular Filtration Rate Calc 111 mL/min (>90) BUN/Creatinine Ratio 18.8 (10.0-20.0) Serum Glucose 86 mg/dL (74-106) Calcium Level 9.1 mg/dL (8.7-10.4) Total Bilirubin 0.4 mg/dL (0.2-1.0) Aspartate Amino Transferase (AST) 13 U/L (13-40) Alanine Aminotransferase (ALT) 13 U/L (7-40) Alkaline Phosphatase 50 U/L (46-116) Total Protein 5.7 g/dL (5.7-8.2) Albumin 3.6 g/dL (3.2-4.8) Prothrombin Time 11.4 sec (9.3-11.8) Prothrombin Time INR 1.08 (0.9-1.15) Activated Partial Thromboplast Time 27.3 SEC (24.5-34.5) Lactic Acid Level 0.7 mmol/L (0.4-2.0) Urine Color Light-yellow (Yellow) Urine Clarity Clear (Clear) Urine pH 6.5 (5.0-9.0) Urine Specific [place] 1.023 (1.001-1.035) Urine Protein Negative (Negative) Urine Ketones Negative (Negative) Urine Blood Negative /uL (Negative) Urine Nitrite Negative (Negative) Urine Bilirubin Negative (Negative) Urine Urobilinogen Normal mg/dL (Negative) Urine Leukocyte Esterase Negative /uL (Negative) Urine RBC 1 /hpf (0 - 4) Urine Microscopic WBC < 1 /HPF (0-5) Urine Squamous Epithelial Cells Few /hpf (<5) Urine Bacteria None seen /hpf (None Seen) Urine Glucose Normal mg/dL (Normal) Other Laboratory Tests 04/05/24 04:36 Brief Hx & Hospital Course: 43-year-old female with a known history of right inguinal hernia came in for abdominal pain found to have mild small-bowel obstruction secondary to inguinal hernia. Seen by surgeon Dr. Puga diet was advanced and he advised to discharge the patient she has an appointment with her surgeon in [place] in two weeks for the inguinal hernia repair . patient wants to be discharged today and discharge stable vital signs. No abdominal pain Consults/Reason for consult Surgeon Dr. Puga Operations or Procedures CT abdomen pelvis without contrast Condition at Discharge: Fair Final Diagnosis/Problems List Acute abdominal pain Right inguinal hernia Discharge Disposition: Home Discharge Instruct/Medications Diet: Regular Activity: Light activity Follow Up/Referral: Keep your appointment with the surgeon at [place] for hernia repair in the next two weeks Medications: none 35 (Time taken for discharge summary 35 minutes) Discharge Statement: "Patient was advised to return to the ER or call 911 if any headaches, dizziness, shortness of breath, chest pain, abdominal pain, bleeding, fevers, or worsening of medical condition. Patient was counseled about treatment plan, medications, possible side effects, patientverbalized understanding. All questions were answered to the best of my ability. This discharge took greater then 30 minutes in planning, reviewing documentation, counseling the patient, and discussing with other team members." ASSESSMENT ASSESSMENT Hospital Course Improved Assessment Acute abdominal pain Right inguinal hernia Date of Service: Apr 05, 2024 Billing Provider: ANNA MARIE CHENEY MD Common Visit Codes: [id number] DISCH DAY >30min ANNA MARIE CHENEY MD Apr 05, 2024 12:20
[2024-04-05 13:30] VITALS: BP 134/63; PULSE 71; RESP 16; TEMP 97.5; O2SAT 94
== END 2024-04-05 13:00 | disposition home or self-care (01) | DRG 254 ==
LOC: ER 12:55 → EEVIPCON 12:55 → OVERFLOW 20:00 → EAST 21:16 → CENTRAL 23:17
PROVIDERS: ADMIT Internal Medicine; ATTEND Internal Medicine
DX: K40.30 Unilateral inguinal hernia, with obstruction, without gangrene, not specified as recurrent (principal); E86.0 Dehydration; I10 Essential (primary) hypertension; Z79.899 Other long term (current) drug therapy
CPT/HCPCS: 36415; 74176; 80053; 81001; 83605; 85025; 85610; 85730; G0378; J2405

== ENCOUNTER 2024-04-17 11:02 | Inpatient (IN) | payer BC, MEDICAID ==
[~2024-04-17] VITALS: Ht 175.3 cm; Wt 107.0 kg
[~2024-04-17 11:02] MED LIST changes: +LISI40TA16 PO
[2024-04-17] MEDS ORDERED: MORPHINE SULFATE 4 MG/ML SYR/VIAL IV ONE (12:00)
[2024-04-17] MEDS ORDERED: ONDANSETRON HCL 4 MG/2 ML VIAL IV ONE (12:00)
--- NOTE | 2024-04-17 12:03 | ED.PDOC ---
GI ASSESSMENT HPI Comments 43 y/o F, presents to the ED for CC abdominal pain. Patient states, she has been experiencing right sided inguinal hernia pain x minutes. Patient relays, having surgery scheduled in May however, symptoms are worsening with hernia now protruding. Patient denies fever, chills, abdominal pain, or N/V/D. No other symptoms or modifying factors at this time. Chief Complaint: Abdominal Pain Time Seen by MD: 11:15 Primary Care Provider: UNKNOWN Reviewed Notes: Nurses Notes, Medications, Allergies Allergies: Coded Allergies: NO KNOWN ALLERGIES (Unverified , 05/13/12) Home Meds Active Scripts Acetaminophen (Tylenol Extra Strength) 500 Mg Tab, 500 MG PO QIDPRN for 10 Days, #40 TAB Prov:RACHAEL MCKEON DO 02/16/23 Phenazopyridine Hcl (Azo Tabs) 95 Mg Tab, 95 MG PO TIDPRN PRN for 4 Days, #12 TAB Prov:RACHAEL MCKEON DO 02/16/23 Cephalexin Monohydrate (Cephalexin) 500 Mg Tab, 1 TAB PO QID for 7 Days, #28 TAB Prov:RACHAEL MCKEON DO 02/16/23 Acetaminophen (Acetaminophen) 500 Mg Tab, 500 MG PO QIDP, #30 TAB 0 Refills Prov:CATRACHITA CHAMBERLAIN 12/21/21 Cephalexin ( Keflex 500) 500 Mg Cap, 1 CAP PO BID for 7 Days, #14 CAP 0 Refills Prov:CATRACHITA CHAMBERLAIN 12/21/21 Naproxen (NAPROSYN TABLET) 500 Mg Tb, 1 TAB PO BID for 10 Days, #20 TAB 1 Refill Prov:SRINIVASAN MACK MD 10/15/21 Atenolol (Atenolol) 25 Mg Tab, 1 TAB PO DAILY for 30 Days, #30 TAB 5 Refills Prov:SRINIVASAN MACK MD 10/15/21 Olmesartan Medoxomil (Benicar) 40 Mg Tab, 1 TAB PO DAILY PRN for 30 Days, #30 TAB 5 Refills Prov:SRINIVASAN MACK MD 10/15/21 Reported Medications Lisinopril (Lisinopril) 40 Mg Tab, 40 MG PO DAILY for 30 Days, MG 04/04/24 Information Source: Patient Mode of Arrival: Ambulatory Timing: Minutes Duration: Since onset Prehospital treatment: None Vomitus: None Stool: Normal Severity: Mild Recent: None Recent Hx of: None Modifying Factors: Nothing Associated sign and symptoms: None Past Medical History PAST MEDICAL HISTORY: HTN 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 Family History Family History: Unknown Social History Smoker: Non-Smoker Alcohol: Denies ETOH Use Drugs: Denies Drug Use Lives In: Home Constitutional: denies: chills, diaphoresis, fatigue, fever, malaise, sweats, weakness, others EENTM: denies: blurred vision, double vision, ear bleeding, ear discharge, ear drainage, ear pain, ear ringing, eye pain, eye redness, hearing loss, mouth pain, mouth swelling, nasal discharge, nose bleeding, nose congestion, nose pain, photophobia, tearing, throat pain, throat swelling, voice changes, others Respiratory: denies: cough, hemoptysis, orthopnea, SOB at rest, shortness of breath, SOB with excertion, stridor, wheezing, others Cardiovascular: denies: chest pain, dizzy spells, diaphoresis, Dyspnea on exertion, edema, irregular heart beat, left arm pain, lightheadedness, palpitations, PND, syncope, others Gastrointestinal: reports: abdominal pain (Right inguinal hernia); denies: abdomen distended, blood streaked bowels, constipated, diarrhea, dysphagia, difficulty swallowing, hematemesis, melena, nausea, poor appetite, poor fluid intake, rectal bleeding, rectal pain, vomiting, others Genitourinary: reports: others (groin pain); denies: abnormal vagina bleeding, burning, dyspareunia, dysuria, flank pain, frequency, hematuria, incontinence, pain, , vagina discharge, urgency Neurological: denies: dizziness, fainting, headache, left sided numbness, left sided weakness, numbness, paresthesia, pre-existing deficit, right sided numbness, right sided weakness, seizure, speech problems, tingling, tremors, weakness, others Musculoskeletal: denies: back pain, gout, joint pain, joint swelling, muscle pain, muscle stiffness, neck pain, others Integumetry: denies: bruises, change in color, change in hair/nails, dryness, laceration, lesions, lumps, rash, wounds, others Allergic/Immunocompromised: denies: Difficulty Healing, Frequent Infections, Hives, Itching, others Hematologic/Lymphatic: denies: anemia, blood clots, easy bleeding, easy bruising, swollen glands, others Endocrine: denies: excessive hunger, excessive sweating, excessive thirst, excessive urination, flushing, intolerance to cold, intolerance to heat, unexplained weight gain, unexplained weight loss, others Psychiatric: denies: anxiety, bipolar disorder, depression, hopeless, panic disorder, schizophrenia, sleepless, suicidal, others All Other Systems: Reviewed and Negative Physical Exam General Appearance: Moderate Distress HEENT: Normal ENT Inspection, Pharynx Normal, TMs Normal Neck: Full Range of Motion, Non-Tender, Normal, Normal Inspection Respiratory: Chest Non-Tender, Lungs Clear, No Accessory Muscle Use, No Respiratory Distress, Normal Breath Sounds Cardiovascular: No Edema, No JVD, No Murmur, No Gallop, Normal Peripheral Pulses, Regular Rate/Rhythm Breast Exam: Deferred Gastrointestinal: No Organomegaly, No Pulsatile Mass, Normal Bowel Sounds, Soft, Tenderness, Other Genitalia: Deferred Pelvic: Deferred Rectal: Deferred Extremities: No calf tenderness, Normal capillary refill, Normal inspection, Normal range of motion, Non-tender, No pedal edema Musculoskeletal : Apperance: Normal Neurologic: Alert, banking representative II-XII nml as Tested, No Motor Deficits, Normal Affect, Normal Mood, No Sensory Deficits Cerebellar Function: Normal Reflexes: Normal Skin: Dry, Normal Color, Warm Lymphatic: No Adenopathy Was a procedure done? Was a procedure done?: No GI differential Dx Differential Diagnosis: Hernia X-Ray, Labs, Meds, VS Vital Signs Date Time Temp Pulse Resp B/P (MAP) Pulse Ox O2 Delivery O2 Flow Rate FiO2 04/17/24 13:49 80 18 130/80 04/17/24 13:28 80 18 140/80 04/17/24 12:45 72 18 98 Room Air 04/17/24 12:45 74 18 118/83 (95) 98 04/17/24 12:37 20 96 Room Air* 0 21 04/17/24 11:40 97.6 72 18 130/92 (105) 97 Lab Test 04/17/24 12:17 Range/Units White Blood Count 10.8 4.4-10.8 10^3/uL Red Blood Count 4.45 4.0-5.20 10^6/uL Hemoglobin 13.4 12.2-16.2 g/dL Hematocrit 39.8 36.0-46.0 % Mean Corpuscular Volume 89.6 80.0-100.0 fL Mean Corpuscular Hemoglobin 30.2 28.0-32.0 pg Mean Corpuscular Hemoglobin Concent 33.7 32.0-36.0 g/dL Red Cell Distribution Width 13.4 11.8-14.3 % Platelet Count 264 140-450 10^3/uL Mean Platelet Volume 9.0 6.9-10.8 fL Neutrophils (%) (Auto) 71.4 37.0-80.0 % Lymphocytes (%) (Auto) 17.5 10.0-50.0 % Monocytes (%) (Auto) 6.0 0.0-12.0 % Eosinophils (%) (Auto) 4.8 0.0-7.0 % Basophils (%) (Auto) 0.3 0.0-2.0 % Neutrophils # (Auto) 7.7 1.6-8.6 10 ^3/uL Lymphocytes # (Auto) 1.9 0.4-5.4 10 ^3/uL Monocytes # (Auto) 0.6 0-1.3 10 ^3/uL Eosinophils # (Auto) 0.5 0-0.8 10 ^3/uL Basophils # (Auto) 0 0-0.2 10 ^3/uL Nucleated Red Blood Cells 0.0 % Prothrombin Time 11.4 9.3-11.8 sec Prothrombin Time INR 1.08 0.9-1.15 Activated Partial Thromboplast Time 26.6 24.5-34.5 SEC Sodium Level 138 136-145 mmol/L Potassium Level 3.8 3.5-5.1 mmol/L Chloride Level 104 98-107 mmol/L Carbon Dioxide Level 25 20-31 mmol/L Anion Gap 9 5-15 Blood Urea Nitrogen 13 9-23 mg/dL Creatinine 0.59 0.550-1.02 mg/dL Glomerular Filtration Rate Calc 115 >90 mL/min BUN/Creatinine Ratio 22.0 H 10.0-20.0 Serum Glucose 84 74-106 mg/dL Calcium Level 9.9 8.7-10.4 mg/dL Current Medications Medications (Trade) Dose Ordered Sig/Antonio Route Start Time Stop Time Status Last Admin Morphine Sulfate 4 mg ONCE ONCE IV 04/17/24 13:15 04/17/24 13:16 DC 04/17/24 13:28 Ondansetron HCl (Zofran) 4 mg ONCE ONCE IV 04/17/24 13:15 04/17/24 13:16 DC 04/17/24 13:28 CXR : FINDINGS: Lines and Tubes: None Lungs: Clear Pleura: No effusion. No pneumothorax. Cardiomediastinal contours: Unremarkable Bones: Unremarkable IMPRESSION: No evidence of acute disease. ATED BY: ALEJANDRO SHAIKH MD DICTATED DATE/TIME: 04/17/241213 SIGNED BY: ALEJANDRO SHAIKH MD SIGNED DATE/TIME: 04/17/241213 CC: CT scan of the abdomen and pelvis shows: IMPRESSION: 1. Moderate size right inguinal hernia containing intra-abdominal fat and a segment of small bowel loop. There is suspected small bowel incarceration with dilated fluid-filled small bowel loop immediately proximal to the herniating bowel. There are additional mildly prominent small-bowel loops in the mid and left abdomen. Findings are likely related to developing obstruction. 2. 5.2 x 3.9 cm cystic structure in the right posterior pelvis likely an ovarian cyst. The CBC and chemistry panel are within normal limits. Patient was to remain NPO We are getting a surgical consult at this time. The patient was being typed and screened The patient was given morphine 4 mg IV push for the pain The patient was given Zofran 4 mg IV push for the nausea The patient was being admitted at this time Images Reviewed?: Images reviewed and evaluated by me Time of 1ST Reevaluation: 11:45 Reevaluation 1ST: Unchanged Patient Education/Counseling: Diagnosis, Treatment, Prognosis Family Education/Counseling: No Family Present Additional Information - I reviewed the following notes from patient's past medical encounters: 04/04/24 DX: SMALL BOWEL OBSTRUCTION - The following tests were ordered, and results were reviewed by me: LABS, CXR, EKGX3 - I reviewed and agreed with the following test results read by other provider: CXR - I discussed treatments and results with medical personnel and: PATIENT Departure 1 Departure Time of Disposition: 14:20 Impression: Primary Impression: Acute abdominal pain Additional Impression: Incarcerated right inguinal hernia Disposition: ADMITTED INPATIENT Admit to: Med Surg Condition: Fair Critical Care Note Critical Care Time?: No Stability Stability form required: Yes Unstable for transfer: ED Physician Assesment (Clinical assesment) Heart Score Heart Score: Heart Score Response (Comments) Value History N/A 0 EKG N/A 0 Age N/A 0 Risk Factors N/A 0 Troponin N/A 0 Total 0 I personally scribed for HUMPHREY GALVAN MD ([email or web address]) on 04/17/24 at 12:03. Electronically submitted by Joyce Peraza ([employer]). I personally scribed for HUMPHREY GALVAN MD ([email or web address]) on 04/17/24 at 12:57. Electronically submitted by Joyce Peraza ([employer]). I personally scribed for HUMPHREY GALVAN MD ([email or web address]) on 04/17/24 at 12:57. Electronically submitted by Joyce Peraza ([email or web address]). HUMPHREY GALVAN MD Apr 17, 2024 12:03
--- NOTE | 2024-04-17 12:17 | DVH ---
CHEST RADIOGRAPH Indication: cp Technique: Frontal and lateral view of the chest was obtained Comparison: CHEST TWO VIEWS ROUTINE on DOS: 10/15/21, CXR2 on DOS: 10/15/21 FINDINGS: Lines and Tubes: None Lungs: Clear Pleura: No effusion. No pneumothorax. Cardiomediastinal contours: Unremarkable Bones: Unremarkable IMPRESSION: No evidence of acute disease.
[2024-04-17 12:32] LABS: Basophils # (auto) 0 10 ^3/uL (0-0.2); Basophils % (auto) 0.3 % (0.0-2.0); Eosinophils # (auto) 0.5 10 ^3/uL (0-0.8); Eosinophils % (auto) 4.8 % (0.0-7.0); Hematocrit 39.8 % (36.0-46.0); Hemoglobin 13.4 g/dL (12.2-16.2); Lymphocytes # (auto) 1.9 10 ^3/uL (0.4-5.4); Lymphocytes % (auto) 17.5 % (10.0-50.0); Mean Corpuscular Hemoglobin 30.2 pg (28.0-32.0); Mean Corpuscular Hgb Conc. 33.7 g/dL (32.0-36.0); Mean Corpuscular Volume 89.6 fL (80.0-100.0); Monocytes # (auto) 0.6 10 ^3/uL (0-1.3); Neutrophils # (auto) 7.7 10 ^3/uL (1.6-8.6); Neutrophils % (auto) 71.4 % (37.0-80.0); Platelet Count (auto) 264 10^3/uL (140-450); Red Blood Cells 4.45 10^6/uL (4.0-5.20); Red Cell Distribution Width 13.4 % (11.8-14.3); White Blood Cell 10.8 10^3/uL (4.4-10.8)
[2024-04-17 12:37] VITALS: RESP 20; O2SAT 96
[2024-04-17 12:48] LABS: Anion Gap 9 (5-15); Carbon Dioxide 25 mmol/L (20-31); Chloride 104 mmol/L (98-107); Potassium 3.8 mmol/L (3.5-5.1); Sodium 138 mmol/L (136-145)
[2024-04-17 12:49] LABS: Calcium 9.9 mg/dL (8.7-10.4)
[2024-04-17 12:51] LABS: INR 1.08 (0.9-1.15); Partial Thromboplastin Time 26.6 SEC (24.5-34.5); Prothrombin Time 11.4 sec (9.3-11.8)
[2024-04-17 12:54] LABS: Blood Urea Nitrogen 13 mg/dL (9-23); Glucose 84 mg/dL (74-106)
[2024-04-17] MEDS: IOHEXOL 300 MG/ML 100ML BOTTLE IJ ONE (13:26)
[2024-04-17] MEDS: ONDANSETRON HCL 4 MG/2 ML VIAL IV ONE ×2 (13:28→20:02)
[2024-04-17] MEDS: MORPHINE SULFATE 4 MG/ML SYR/VIAL IV ONE ×2 (13:28→20:03)
--- NOTE | 2024-04-17 14:16 | DVH ---
Exam: CT CT AB PEL WITH IV CON ONLY History: Possible incarcerated right inguinal hernia TECHNIQUE: A digital cash register repairer image was obtained. During the uneventful, intravenous administration of c ontrast material, multislice data acquisition was obtained through the abdomen and pelvis. The data s et was subsequently reconstructed into axial images. Images were reviewed on a work station using a c ombination of axial and multiplanar using a variety of window levels and settings. 100 cc of Omnipaqu e 300 contrast was injected intravenously. All CT scans at this medical facility are performed using dose modulation techniques as appropriate t o a performed exam including the following:Automated exposure control was utilized; adjustment of the MA and/or KV according to patient size; and use of iterative reconstruction technique. Radiation Dose Information: CT Dose: CTDI volume is 19.35 mGy. Dose-length product is 1143.64 mGy*cm Comparison: 04/04/2024 FINDINGS: There is a moderate size right inguinal hernia which contains intra-abdominal fat and a segment of sm all bowel loop. The small bowel loop immediately proximal to the herniating bowel is dilated measurin g 3 cm in diameter and is fluid-filled. There are additional mildly prominent small bowel loops seen in the mid and left abdomen. The findings are suspicious for incarcerated bowel loop with developing obstruction. The large bowel loops are decompressed. Theliver, gallbladder, pancreas, kidneys, adrenal glands, and spleen appear within normal limits. There is no evidence of abdominal lymphadenopathy. There is no free fluid or free air. The stomach ap pears within normal limits. The abdominal aorta and IVC appear within normal limits. The bladder appears within normal limits the degree of distention. The uterus appears unremarkable. There is a 5.2 x 3.9 cm cystic structure in the right posterior pelvis likely an ovarian cyst. There is no evidence of a pelvic mass or lymphadenopathy. There is no free fluid collection. Lung bases are clear. There is no acute osseous abnormality. IMPRESSION: 1. Moderate size right inguinal hernia containing intra-abdominal fat and a segment of small bowel lo op. There is suspected small bowel incarceration with dilated fluid-filled small bowel loop immediat daniella proximal to the herniating bowel. There are additional mildly prominent small-bowel loops in the mid and left abdomen. Findings are likely related to developing obstruction. 2. 5.2 x 3.9 cm cystic structure in the right posterior pelvis likely an ovarian cyst. Critical findings discussed with dr. Simpson by Dr. Robin Pemberton via phone on 04/17/2024 02:13 PM. HS:Y
--- NOTE | 2024-04-17 16:05 | DVHINCON2 ---
Date of service: Apr 17, 2024 Reason for Consultation incarcerated right inguinal hernia History of Present Illness History Source: Patient, Notes HPI 43 year old female presented to the emergency department with complaint of right groin pain. Patient states she is scheduled to have surgery in May for a right inguinal hernia repair. Her symptoms have become worse, and her hernia is now protruding. Review of CT abdomen pelvis with IV contrast. Moderate size right inguinal hernia containing intra abdominal fat and a segment of small bowel loop. Home Meds Active Scripts Acetaminophen (Tylenol Extra Strength) 500 Mg Tab, 500 MG PO QIDPRN for 10 Days, #40 TAB Prov:PUNEETSARARACHAEL DO 02/16/23 Phenazopyridine Hcl (Azo Tabs) 95 Mg Tab, 95 MG PO TIDPRN PRN for 4 Days, #12 TAB Prov:PUNEETSARARACHAEL DO 02/16/23 Cephalexin Monohydrate (Cephalexin) 500 Mg Tab, 1 TAB PO QID for 7 Days, #28 TAB Prov:RACHAEL MCKEON DO 02/16/23 Acetaminophen (Acetaminophen) 500 Mg Tab, 500 MG PO QIDP, #30 TAB 0 Refills Prov:CATRACHITA CHAMBERLAIN 12/21/21 Cephalexin ( Keflex 500) 500 Mg Cap, 1 CAP PO BID for 7 Days, #14 CAP 0 Refills Prov:CATRACHITA CHAMBERLAIN 12/21/21 Naproxen (NAPROSYN TABLET) 500 Mg Tb, 1 TAB PO BID for 10 Days, #20 TAB 1 Refill Prov:SRINIVASAN MACK MD 10/15/21 Atenolol (Atenolol) 25 Mg Tab, 1 TAB PO DAILY for 30 Days, #30 TAB 5 Refills Prov:SRINIVASAN MACK MD 10/15/21 Olmesartan Medoxomil (Benicar) 40 Mg Tab, 1 TAB PO DAILY PRN for 30 Days, #30 TAB 5 Refills Prov:SRINIVASAN MACK MD 10/15/21 Reported Medications Lisinopril (Lisinopril) 40 Mg Tab, 40 MG PO DAILY for 30 Days, MG 04/04/24 Past Medical History Cardiac: HTN Pulmonary: No pertinent Hx Central Nervous System: No pertinent Hx GI: No pertinent Hx Hemotology/Oncology: No pertinent Hx Hepatobiliary: No pertinent Hx Psychiatric: No pertinent Hx Musculoskeletal: No pertinent Hx Rheumotologic: No pertinent Hx Infectious Disease: No peritnent Hx ENT: No pertinent Hx Renal/: No pertinent Hx Endocrine: No pertinent Hx Dermatology: No pertinent Hx Past Surgical History: Patient Family History: Patient reports no known family medical history. Review of Systems Constitutional: No symptom reported Eyes: No symptom reported Pulmonary/Respiratory: No symptom reported Cardiovascular: No symptom reported Gastrointestinal: Abdominal Pain Genitourinary: No symptom reported Musculoskeletal: No symptom reported Skin: No symptom reported Psychiatric: No symptom reported Endocrine: No symptom reported Hemotologic/Lymphatic: No symptom reported H&P Exam Vital Signs Vital Signs Date Time Temp Pulse Resp B/P (MAP) Pulse Ox O2 Delivery O2 Flow Rate FiO2 04/17/24 14:45 67 18 116/71 (86) 93 04/17/24 12:45 Room Air 04/17/24 12:37 0 21 04/17/24 11:40 97.6 General Appeara: Well developed, Well nourished, Normal Appearance Head Exam: Normal inspection Eye Exam: bilateral eye Normal inspection, bilateral eye PERRL Mouth: Normal Inspection Pulmonary/Respiratory: Normal inspection, Normal breath sounds Cardiovascular/Chest: Regular rate, Normal 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 Exam: Normal hearing, Normal speech, PERRL Neuro/Mental St: Alert, Oriented Appearance: Appropriate appearance Eye contact/ Speech: Cooperative, Good eye contact, Normal speech Skin Exam: Normal inspection, Normal color, Warm/dry Labs/Xrays Labs Test 04/17/24 12:17 Range/Units White Blood Count 10.8 4.4-10.8 10^3/uL Red Blood Count 4.45 4.0-5.20 10^6/uL Hemoglobin 13.4 12.2-16.2 g/dL Hematocrit 39.8 36.0-46.0 % Mean Corpuscular Volume 89.6 80.0-100.0 fL Mean Corpuscular Hemoglobin 30.2 28.0-32.0 pg Mean Corpuscular Hemoglobin Concent 33.7 32.0-36.0 g/dL Red Cell Distribution Width 13.4 11.8-14.3 % Platelet Count 264 140-450 10^3/uL Mean Platelet Volume 9.0 6.9-10.8 fL Neutrophils (%) (Auto) 71.4 37.0-80.0 % Lymphocytes (%) (Auto) 17.5 10.0-50.0 % Monocytes (%) (Auto) 6.0 0.0-12.0 % Eosinophils (%) (Auto) 4.8 0.0-7.0 % Basophils (%) (Auto) 0.3 0.0-2.0 % Neutrophils # (Auto) 7.7 1.6-8.6 10 ^3/uL Lymphocytes # (Auto) 1.9 0.4-5.4 10 ^3/uL Monocytes # (Auto) 0.6 0-1.3 10 ^3/uL Eosinophils # (Auto) 0.5 0-0.8 10 ^3/uL Basophils # (Auto) 0 0-0.2 10 ^3/uL Nucleated Red Blood Cells 0.0 % Prothrombin Time 11.4 9.3-11.8 sec Prothrombin Time INR 1.08 0.9-1.15 Activated Partial Thromboplast Time 26.6 24.5-34.5 SEC Sodium Level 138 136-145 mmol/L Potassium Level 3.8 3.5-5.1 mmol/L Chloride Level 104 98-107 mmol/L Carbon Dioxide Level 25 20-31 mmol/L Anion Gap 9 5-15 Blood Urea Nitrogen 13 9-23 mg/dL Creatinine 0.59 0.550-1.02 mg/dL Glomerular Filtration Rate Calc 115 >90 mL/min BUN/Creatinine Ratio 22.0 H 10.0-20.0 Serum Glucose 84 74-106 mg/dL Calcium Level 9.9 8.7-10.4 mg/dL Assessment/Plan Plan Labs reviewed. CT report report reviewed. Patient complaints of right groin pain. She currently has a scheduled surgery in May at [place]. However, the pain became progressively worse, which prompted her to come into the ER for further evaluation. Patient denies any nausea or vomiting, normal bowel activity. Right groin area tender to palpation, the right inguinal hernia is not protruding but causing discomfort. Upon review of the CT indicates moderated size hernia containing intra abdominal fat and a segment of small bowel loop. Plan for tomorrow am repair of incarcerated right inguinal hernia possibly with mesh Discussed with doctor Puga and agrees with plan. Explained operation to patient Risk and complications in detail. Plan discussed with: Patient, Other (Dr. Puga) Visit Coding Surgery Date of Service if different f: Apr 17, 2024 Billing Provider: ROLA PUGA MD Surgery Visit Codes: 94760 - INP CONSULT <80 MIN [employer] Apr 17, 2024 16:05
[2024-04-17] MEDS: D5W/SOD CHL 0.45%/KCL 20MEQ 1,000 ML IV ONE (21:01)
[2024-04-17] MEDS: ACETAMINOPHEN 325 MG TAB PO SCH (22:00)
[2024-04-17] MEDS: KETOROLAC TROMETH 30 MG/ML 1ML VIAL IV SCH (22:25)
--- NOTE | 2024-04-17 23:18 | DVHHPRES ---
History of Present Illness Resident Creating Document: BELKIS DELGADO RESIDENT Reason for Visit: right groin pain History of Present Illness 43-year-old female presents with right groin pain secondary to right inguinal hernia. She reports a history of right inguinal hernia with a scheduled repair in May; however, her symptoms have worsened over the past few days, with the hernia now protruding. She states that the pain is getting worse when she needs to do physical effort . She denies fever, chills, nausea, vomiting, or recent trauma. No associated bowel or urinary symptoms. No known modifying factors. Past Medical History: Hypertension Ovarian cysts Surgical History: Family History: Unknown Social History: Non-smoker Denies alcohol use Denies drug use Lives at home Medications: Lisinopril 40 mg PO Daily Allergies: No known drug allergies Cardiovascular: HTN Review of Systems Constitutional: No: Fever, Chills, Sweats, Weakness, Malaise, Other Eyes: No: Pain, Vision change, Conjunctivae inflammation, Eyelid inflammation, Other, Redness ENT: No: Ear pain, Ear discharge, Nose pain, Nose discharge, Nose congestion, Mouth pain, Mouth swelling, Throat pain, Throat swelling, Other Respiratory: No: Cough, Dry, Shortness of breath, SOB with excertion, Wheezing, Hemoptysis, Pleuritic Pain, Sputum, Wheezing, Other Cardiovascular: No: Chest Pain, Palpitations, Orthopnea, Paroxysmal Noc. Dyspnea, Edema, Lt Headedness, Other Gastrointestinal: No: Nausea, Vomiting, Abdominal Pain, Diarrhea, Constipation, Melena, Hematochezia, Other Genitourinary: No Dysuria, No Frequency, No Incontinence, No Hematuria, No Retention, No Other Musculoskeletal: No: other, neck pain, shoulder pain, arm pain, back pain, hand pain, leg pain, foot pain Skin: No: Rash, Lesions, Jaundice, Bruising, Other Neurological: No: Weakness, Numbness, Incoordination, Change in speech, Confusion, Seizures, Other Allergies: Coded Allergies: NO KNOWN ALLERGIES (Unverified , 05/13/12) Medications Current Medications Medications Dose Ordered Sig/Antonio Route Start Time Stop Time Status Last Admin Dose Admin Acetaminophen 650 mg TID PO 04/17/24 22:00 Ketorolac Tromethamine 30 mg TID IV 04/17/24 22:00 04/22/24 21:59 04/17/24 22:25 30 MG Exam Vital Signs Vital Signs Date Time Temp Pulse Resp B/P (MAP) Pulse Ox O2 Delivery O2 Flow Rate FiO2 04/17/24 20:30 66 14 118/79 04/17/24 20:00 Room Air* 0 21 04/17/24 20:00 98.8 95 98.8 General Appearance: Alert, Oriented X3, Cooperative, mild distress HEENT: Atraumatic, PERRLA, EOMI, Mucous membr. moist/pink Respiratory: Clear to auscultation, Normal air movement Cardiovascular: Regular rate, Normal S1, Normal S2 Abdominal: Normal bowel sounds, Soft, Other (right inguinal hernia ) Extremities: No clubbing, No cyanosis, No edema Skin: No rashes, No breakdown, No significant lesion Labs/Xrays Labs Test 04/17/24 12:17 Range/Units White Blood Count 10.8 4.4-10.8 10^3/uL Red Blood Count 4.45 4.0-5.20 10^6/uL Hemoglobin 13.4 12.2-16.2 g/dL Hematocrit 39.8 36.0-46.0 % Mean Corpuscular Volume 89.6 80.0-100.0 fL Mean Corpuscular Hemoglobin 30.2 28.0-32.0 pg Mean Corpuscular Hemoglobin Concent 33.7 32.0-36.0 g/dL Red Cell Distribution Width 13.4 11.8-14.3 % Platelet Count 264 140-450 10^3/uL Mean Platelet Volume 9.0 6.9-10.8 fL Neutrophils (%) (Auto) 71.4 37.0-80.0 % Lymphocytes (%) (Auto) 17.5 10.0-50.0 % Monocytes (%) (Auto) 6.0 0.0-12.0 % Eosinophils (%) (Auto) 4.8 0.0-7.0 % Basophils (%) (Auto) 0.3 0.0-2.0 % Neutrophils # (Auto) 7.7 1.6-8.6 10 ^3/uL Lymphocytes # (Auto) 1.9 0.4-5.4 10 ^3/uL Monocytes # (Auto) 0.6 0-1.3 10 ^3/uL Eosinophils # (Auto) 0.5 0-0.8 10 ^3/uL Basophils # (Auto) 0 0-0.2 10 ^3/uL Nucleated Red Blood Cells 0.0 % Prothrombin Time 11.4 9.3-11.8 sec Prothrombin Time INR 1.08 0.9-1.15 Activated Partial Thromboplast Time 26.6 24.5-34.5 SEC Sodium Level 138 136-145 mmol/L Potassium Level 3.8 3.5-5.1 mmol/L Chloride Level 104 98-107 mmol/L Carbon Dioxide Level 25 20-31 mmol/L Anion Gap 9 5-15 Blood Urea Nitrogen 13 9-23 mg/dL Creatinine 0.59 0.550-1.02 mg/dL Glomerular Filtration Rate Calc 115 >90 mL/min BUN/Creatinine Ratio 22.0 H 10.0-20.0 Serum Glucose 84 74-106 mg/dL Calcium Level 9.9 8.7-10.4 mg/dL Thyroid Stimulating Hormone (TSH) 0.80 0.55-4.78 uIU/mL Beta HCG, Quantitative 0.4 L 1.5-4.2 mIU/mL Assessment/Plan Assessment/Plan 43-year-old female with a history of right inguinal hernia presenting with worsening right groin pain and hernia protrusion, concerning for incarceration. #Incarcerated right inguinal hernia CT scan: 1. Moderate size right inguinal hernia containing intra-abdominal fat and a segment of small bowel loop. There is suspected small bowel incarceration with dilated fluid-filled small bowel loop immediately proximal to the herniating bowel. There are additional mildly prominent small-bowel loops in the mid and left abdomen. Findings are likely related to developing obstruction. 2. 5.2 x 3.9 cm cystic structure in the right posterior pelvis likely an ovarian cyst. Scheduled for surgical repair tomorrow morning NPO status overnight IV fluids for hydration Pain management with acetaminophen IV AB Monitor for signs of strangulation (severe pain, skin changes, peritoneal signs) #Hypertension Normal BPs Case discussed with Dr Cee Time spent on care 23 min Plan discussed with: Patient, Other (rn) My Orders Orders - BELKIS DELGADO RESIDENT Procedure Category Date Status Time Admit ADMIT 04/17/24 Transmitted 21:39 Urinalysis LAB 04/17/24 Logged 21:39 Npo After Midnight DIET 04/18/24 Transmitted Breakfast Cardiac DIET 04/18/24 Transmitted Diet-2gna,Lofat,Lochol Breakfast Acetaminophen Tablet PHA 04/17/24 In Process (Tylenol Tablet) 22:00 Ketorolac Injection PHA 04/17/24 In Process (Toradol Injection) 22:00 Date of Service: Apr 17, 2024 Billing Provider: MICHAEL CEE MD Common Visit Codes: [id number] INP/OBS CARE (HIGH) BELKIS DELGADO RESIDENT Apr 17, 2024 23:18 MICHAEL CEE MD Apr 18, 2024 23:25
[2024-04-17 23:49] VITALS: BP_SYST 118; BP_DIAS 74; BP_DIAS 75; PULSE 66; RESP 18; TEMP 97.6; O2SAT 94
[2024-04-18] VITALS (8 sets, daily range): BP systolic 100–128; BP diastolic 55–75; PULSE 55–89; RESP 16–20; TEMP 97.7–98.3; O2SAT 93–95
[2024-04-18] MEDS: cefTRIAXone 1GM/50ML D5W 50 ML IV ONE (01:09)
[2024-04-18] MEDS: MORPHINE SULFATE INJ 2 MG/ml SYRG IV PRN (01:19)
[2024-04-18] MEDS: TEMAZEPAM 15 MG CAP PO ONE (01:56)
[2024-04-18] MEDS: metroNIDAZOLE 500MG/100ML 100 ML IV ONE (01:56)
[2024-04-18] MEDS: metroNIDAZOLE 500MG/100ML 100 ML IV SCH (06:26)
[2024-04-18] MEDS ORDERED: SUCCINYLCHOLINE CHLORIDE 20 MG/ML 10ML VIAL IV ONE (08:36)
[2024-04-18] MEDS ORDERED: fentaNYL CITRATE 100 MCG/2 ML VL ONE ×2 (08:39→11:18)
[2024-04-18] MEDS ORDERED: PROPOFOL 10 MG/ML 20 ML IV ONE ×2 (08:41→11:18)
--- NOTE | 2024-04-18 09:14 | DVH ---
CHEST RADIOGRAPH Indication: NG Tube placement Technique: Single frontal view of the chest was obtained Comparison: None FINDINGS: Lines and Tubes: An NG tube courses below the diaphragm with the tip in the left upper quadrant abdom en presumed to be in the stomach. Lungs: No focal consolidation. Pleura: No effusion.No pneumothorax. Cardiomediastinal contours: Unremarkable Pulmonary vasculature: Within normal limits. Bones: No acute osseous abnormality. IMPRESSION: 1. No acute cardiopulmonary disease. HS:Y
--- NOTE | 2024-04-18 10:26 | DVHPNRES ---
Progress Note Date Seen: Apr 18, 2024 Resident Creating Document: LULA KNOX RESIDENT Medical Necessity Reason Pt with a Central, PICC or Fol: No Subjective Review of Systems This is a 43-year-old female patient with PMH HX of right inguinal hernia, ovarian cyst and hypertension who presents to the ER with a chief complaint of right groin pain. She was diagnosed with right inguinal hernia 2 months back, was scheduled for hernia repair in May. She has experienced worsening pain in the right groin for the past couple of days and progressive bulging. Denies any systemic symptoms. Patient was seen by the surgeon, who recommended surgery and patient was scheduled for mesh repair 04/18. PMH: See above PSH: 3 C sections Medications: Lisinopril 40 mg daily Social history: Denies smoking/alcohol/drug use Patient seen and examined at bedside. Reports feeling better. Objective vital signs Vital Sign Date Time Temp Pulse Resp B/P (MAP) Pulse Ox O2 Delivery O2 Flow Rate FiO2 04/18/24 10:00 61 16 104/62 04/18/24 09:00 98.2 95 98.2 04/18/24 08:00 Room Air* 0 21 Total Intake and Output 04/17/24 04/17/24 04/18/24 15:00 23:00 07:00 Intake Total 120 ml 150 ml Output Total 200 ml Balance 120 ml -50 ml medications Current Medications Medications Dose Ordered Sig/Antonio Route Start Time Stop Time Status Last Admin Dose Admin Acetaminophen 650 mg TID PO 04/17/24 22:00 Ketorolac Tromethamine 30 mg TID IV 04/17/24 22:00 04/22/24 21:59 04/18/24 06:27 30 MG Metronidazole 100 ml @ 100 mls/hr Q8HR IV 04/18/24 06:00 04/18/24 06:26 100 MLS/HR Ceftriaxone Sodium 50 ml @ 100 mls/hr DAILY@09 IV 04/19/24 09:00 Morphine Sulfate 1 mg Q6HP PRN IV 04/18/24 01:15 04/18/24 10:00 1 MG Examination Young obese female lying in bed, in no acute distress. General: Overweight, afebrile, palor, mucosae are moist Cardiovascular: Regular S1 and S2. No murmurs, gallops or rubs. No JVD elevation. No pedal edema Respiratory: Normal B/L air entry on room air. Clear lung sounds on auscultation Abdomen: Soft, nontender, nondistended, normoactive bowel sounds, no rebound tenderness, no organomegaly, no masses. NG tube seen. Right groin has soft but tender swelling. Genitourinary: Deferred MSK/skin: Mobilizes 4 limbs. Skin is dry and warm Neurological: No motor, no sensitive deficits, normal speech. Pupils are isocoric and reactive. Psych/Mental Status: A/Ox4 laboratory and microbiology Laboratory Tests 04/17/24 12:17 Test 04/17/24 12:17 Range/Units Serum Glucose 84 74-106 mg/dL Labs and/or images reviewed: Labs reviewed by me, Image(s) reviewed by me Problem List/Assessment/Plan Problem List/Assessment/Plan Incarcerated right inguinal hernia s/p open repair with mesh CT scan showed Moderate size right inguinal hernia containing intra-abdominal fat and a segment of small bowel loop. There is suspected small bowel incarceration with dilated fluid-filled small bowel loop immediately proximal to the herniating bowel. There are additional mildly prominent small-bowel loops in the mid and left abdomen. Findings are likely related to developing obstruction. Underwent hernia repair by Dr. Foreman 04/18 with mesh. No drain. No complication. Estimated blood loss 10 cc Continue IV ceftriaxone and IV metronidazole starting 04/18 IV Toradol and IV morphine for pain control Right-sided ovarian cyst CT scan showed 2. 5.2 x 3.9 cm cystic structure in the right posterior pelvis likely an ovarian cyst. Outpatient OBGYN follow up Hypertension - controlled Monitor Morbid obesity Counseled regarding lifestyle measures for more than 29 minutes DVT prophylaxis: SCDs Goals of care discussed with the patient for more than 23 minutes, full code status Plan discussed with the patient in which all questions have been answered Case discussed with Dr. Duque. Plan discussed with: Patient My Orders My Orders Orders - LULA KNOX RESIDENT Procedure Category Date Status Time Complete Blood Count LAB 04/19/24 Verified 04:00 Comprehensive LAB 04/19/24 Verified Metabolic Panel 04:00 Vitamin B12 LAB 04/19/24 Verified 04:00 Vitamin D, 25-Hydroxy LAB 04/19/24 Verified 04:00 Date of Service: Apr 18, 2024 Billing Provider: KIMBERLEY LEMUS MD Common Visit Codes: [id number] INP/OBS CARE(HIGH) LULA KNOX Apr 18, 2024 10:26 KIMBERLEY LEMUS MD Apr 21, 2024 00:14
[2024-04-18] MEDS ORDERED: ONDANSETRON HCL 4 MG/2 ML VIAL ONE ×2 (11:18→12:53)
[2024-04-18] MEDS ORDERED: KETAMINE 50mg/ML 1ml syringe ONE (11:18)
[2024-04-18] MEDS ORDERED: LIDOCAINE 1% INJ PF 5ML AMP ONE (11:18)
[2024-04-18] MEDS ORDERED: SODIUM CHLORIDE LOCK 10 ML ONE (11:18)
[2024-04-18] MEDS ORDERED: MIDAZOLAM HCL 2MG/2ML 2ml VIAL (1mg/ml) ONE (11:18)
--- NOTE | 2024-04-18 12:23 | DVHINCON2 ---
Date of service: Apr 18, 2024 Family History: Diabetes mellitus G8 MOTHER G8 FATHER Grandmother Grandfather Allergies: Coded Allergies: NO KNOWN ALLERGIES (Unverified , 05/13/12) Home Meds Active Scripts Atenolol (Atenolol) 25 Mg Tab, 1 TAB PO DAILY for 30 Days, #30 TAB 5 Refills Prov:SRINIVASAN MACK MD 10/15/21 Olmesartan Medoxomil (Benicar) 40 Mg Tab, 1 TAB PO DAILY PRN for 30 Days, #30 TAB 5 Refills Prov:SRINIVASAN MACK MD 10/15/21 Reported Medications Lisinopril (Lisinopril) 40 Mg Tab, 40 MG PO DAILY for 30 Days, MG 04/04/24 Current Medications Current Medications Medications (Trade) Dose Ordered Sig/Antonio Route PRN Reason Start Time Stop Time Status Last Admin Acetaminophen (Tylenol Tablet) 650 mg TID PO 04/17/24 22:00 Ketorolac Tromethamine (Toradol Injection) 30 mg TID IV 04/17/24 22:00 04/22/24 21:59 04/18/24 06:27 Metronidazole 100 ml @ 100 mls/hr Q8HR IV 04/18/24 06:00 04/18/24 06:26 Ceftriaxone Sodium 50 ml @ 100 mls/hr DAILY@09 IV 04/19/24 09:00 Morphine Sulfate 1 mg Q6HP PRN IV SEVERE PAIN (7-10 PAIN SCALE) 04/18/24 01:15 04/18/24 10:00 Vital Signs Vital Signs Date Time Temp Pulse Resp B/P (MAP) Pulse Ox O2 Delivery O2 Flow Rate FiO2 04/18/24 10:30 58 16 98/59 04/18/24 09:00 98.2 95 98.2 04/18/24 08:00 Room Air* 0 21 Labs/Diagnostic Data Labs Test 04/18/24 06:14 04/17/24 12:17 Range/Units Magnesium Level 1.8 1.6-2.6 mg/dL Beta HCG, Quantitative 0.5 L 1.5-4.2 mIU/mL White Blood Count 10.8 4.4-10.8 10^3/uL Red Blood Count 4.45 4.0-5.20 10^6/uL Hemoglobin 13.4 12.2-16.2 g/dL Hematocrit 39.8 36.0-46.0 % Mean Corpuscular Volume 89.6 80.0-100.0 fL Mean Corpuscular Hemoglobin 30.2 28.0-32.0 pg Mean Corpuscular Hemoglobin Concent 33.7 32.0-36.0 g/dL Red Cell Distribution Width 13.4 11.8-14.3 % Platelet Count 264 140-450 10^3/uL Mean Platelet Volume 9.0 6.9-10.8 fL Neutrophils (%) (Auto) 71.4 37.0-80.0 % Lymphocytes (%) (Auto) 17.5 10.0-50.0 % Monocytes (%) (Auto) 6.0 0.0-12.0 % Eosinophils (%) (Auto) 4.8 0.0-7.0 % Basophils (%) (Auto) 0.3 0.0-2.0 % Neutrophils # (Auto) 7.7 1.6-8.6 10 ^3/uL Lymphocytes # (Auto) 1.9 0.4-5.4 10 ^3/uL Monocytes # (Auto) 0.6 0-1.3 10 ^3/uL Eosinophils # (Auto) 0.5 0-0.8 10 ^3/uL Basophils # (Auto) 0 0-0.2 10 ^3/uL Nucleated Red Blood Cells 0.0 % Prothrombin Time 11.4 9.3-11.8 sec Prothrombin Time INR 1.08 0.9-1.15 Activated Partial Thromboplast Time 26.6 24.5-34.5 SEC Sodium Level 138 136-145 mmol/L Potassium Level 3.8 3.5-5.1 mmol/L Chloride Level 104 98-107 mmol/L Carbon Dioxide Level 25 20-31 mmol/L Anion Gap 9 5-15 Blood Urea Nitrogen 13 9-23 mg/dL Creatinine 0.59 0.550-1.02 mg/dL Glomerular Filtration Rate Calc 115 >90 mL/min BUN/Creatinine Ratio 22.0 H 10.0-20.0 Serum Glucose 84 74-106 mg/dL Calcium Level 9.9 8.7-10.4 mg/dL Thyroid Stimulating Hormone (TSH) 0.80 0.55-4.78 uIU/mL Assessment [id number] INCARCERATED RIGHT INGUINAL HERNIA PROCEED WITH OPEN REPAIR RIGHT INGUINAL HERNIA WITH MESH BENEFITS RISKS DISCUSSED AND PT CONSENTS NURSE AT BEDSIDE Plan discussed with: Patient MAGNUS FLORES MD Apr 18, 2024 12:23
[2024-04-18] MEDS ORDERED: ceFAZolin 2 GM/D5W100ml 100 ML IV ONE (12:39)
[2024-04-18] MEDS ORDERED: ROCURONIUM 10MG/ML 10ML VIAL IV ONE (12:52)
[2024-04-18] MEDS ORDERED: DexAMETHasone SOD PHOS 10MG/1ML VIAL INJ ONE (12:53)
[2024-04-18] MEDS ORDERED: ePHEDrine SULFATE 50 MG/ML AMP ONE (12:58)
[2024-04-18] MEDS ORDERED: MEPERIDINE HCL (25 MG/ML) 1ML VIAL ONE ×2 (13:03→14:00)
[2024-04-18] MEDS: BUPIVACAINE 0.25% INJ 50ML VIAL ONE (13:05)
[2024-04-18] MEDS ORDERED: ceFAZolin 1GM VL ONE (13:45)
[2024-04-18 13:52] LABS: Urine Bacteria None Seen /hpf (None Seen)
[2024-04-18] MEDS ORDERED: SUGAMMADEX 200mg/2ml Vial (100MG/ML) IV ONE (13:58)
[2024-04-18 14:01] LABS: Urine Blood Negative /uL (Negative); Urine Clarity Clear (Clear); Urine Color Yellow (Yellow); Urine Mucus FEW (None Seen); Urine Protein, UAD Negative (Negative); Urine Specific Gravity 1.021 (1.001-1.035); Urine Squamous Epithelial Cell FEW /hpf (<5); Urine Urobilinogen Normal (Negative); Urine WBC < 1 /HPF (0-5)
--- NOTE | 2024-04-18 14:09 | DVHOP2 ---
Operative Report [id number] INCARCERATED RIH OPEN REPAIR ABOVE WITH MESH EBL 10 CC NO DRAIN NO COMPLICATION MAGNUS FLORES MD Apr 18, 2024 14:09
[2024-04-18] MEDS ORDERED: HYDROmorphone HCL 2 MG/ML VL/or syr IV PRN (14:15)
[2024-04-18] MEDS ORDERED: ONDANSETRON HCL 4 MG/2 ML VIAL IV ONE (14:15)
[2024-04-18] MEDS ORDERED: MEPERIDINE HCL (25 MG/ML) 1ML VIAL IV PRN (14:15)
[2024-04-18] MEDS ORDERED: ACETAMINOPHEN IV 1000 MG/100ML (10MG/ML) IV PRN (14:15)
--- NOTE | 2024-04-18 14:40 | DVHOP ---
DATE OF SURGERY: 04/18/2024 PREOPERATIVE DIAGNOSIS: Incarcerated right inguinal hernia. She had an indirect and direct hernia. POSTOPERATIVE DIAGNOSIS: Incarcerated right inguinal hernia. She had an indirect and direct hernia. PROCEDURE: Open repair of this right inguinal hernia with mesh. SURGEON: Ulisses Foreman MD. PEANUT BUTTER MAKER: None. ANESTHESIA: General. ESTIMATED BLOOD LOSS: Close to 10 mL. DRAINS: No drains were used. COMPLICATIONS: No complication encountered. DESCRIPTION OF PROCEDURE: The patient was prepped and draped in the usual sterile fashion in a supine position and an oblique incision was applied above the groin crease in the right lower quadrant and was taken down to the deeper tissues. The external oblique fascia was divided in an oblique fashion allowing the round ligament structures to be exposed. The indirect hernia sac along with the lipoma was identified. The lipoma was removed and submitted for pathology. The direct hernia was noted as well and the small-sized mesh plug technique was used to repair this. The plug was placed into the indirect location after the contents of the hernia reduced back into the abdomen and the plug was secured with a Prolene suture to the inguinal ligament below and the conjoint tendon above and the posterior wall of the direct hernia was sutured with the Prolene suture as well and reinforced with the flat mesh that was secured in place using the pubic tubercle fascia medially, the conjoint tendon above, the inguinal ligament below, around the round ligament structures and then suturing the mesh to the internal oblique muscle superiorly and the inguinal ligament below as well. With this being done, irrigation performed. Hemostasis was secured. The round ligament structures were re-placed back in their anatomic location without any compromise and no injuries occurred to the major nerves or vessels in the vicinity and lidocaine was infiltrated in the vicinity and then the sponge count, needle count was reported correct. The wound was brought together using Vicryl suture for the subcutaneous tissues and the skin was brought together using 3-0 Monocryl suture in a subcuticular fashion. Surgical glue was applied. Steri-Strips were applied. Dressing was applied. The patient tolerated the procedure well and was taken back to recovery room in a stable condition. Ulisses Foreman MD RG/ARV TID: [id number] RECEIPT: [id number] cc:
[2024-04-18] MEDS: MAGNESIUM SULFATE 1GM/100ML 100 ML IV ONE (15:07)
--- NOTE | 2024-04-18 16:29 | DVHINCON2 ---
DATE OF CONSULTATION: 04/18/2024 HISTORY OF PRESENT ILLNESS: This patient is 43 years old, complaining of right groin pain, swelling, and she was scheduled for open surgery of the right inguinal hernia by Dr. Puga, but I was asked to see this patient and the care was turned over to me and I saw her. Currently, her pain in the right groin has subsided to quite a bit of extent and the hernia also remains reduced. No nausea or vomiting. She has an NG tube in place and she did have a bowel movement yesterday, not today. She is passing flatus. No hematemesis or melena. No bleeding per rectum. PAST MEDICAL HISTORY: Hypertension, ovarian cyst. PAST SURGICAL HISTORY: . PHYSICAL EXAMINATION: VITAL SIGNS: Afebrile, stable signs. HEENT: No evidence of pallor, cyanosis, or jaundice. NECK: Supple, nontender with no thyromegaly, lymphadenopathy. CHEST AND LUNGS: Clear. HEART: Within normal limits. ABDOMEN: Soft and nontender. Relatively benign. She does have a right inguinal hernia that is reducible, but has a potential of recurring and causing re-incarceration and possible strangulation. NEUROLOGIC: Not assessed. EXTREMITIES: Unremarkable. CLINICAL IMPRESSION AND PLAN: Incarcerated right inguinal hernia. Procedure is going to be open repair of this right inguinal hernia with possible mesh. Benefits, risks discussed and a consent obtained. MD RIMMA aVldez/ZAKIA/CARLITOS TID: [id number] RECEIPT: [id number] cc:
[2024-04-19] VITALS (7 sets, daily range): BP systolic 102–120; BP diastolic 7–68; PULSE 62–73; RESP 16–20; TEMP 97.1–98.3; O2SAT 93–100
[2024-04-19 06:48] LABS: Basophils # (auto) 0 10 ^3/uL (0-0.2); Basophils % (auto) 0.1 % (0.0-2.0); Eosinophils # (auto) 0 10 ^3/uL (0-0.8); Eosinophils % (auto) 0.1 % (0.0-7.0); Hematocrit 36.6 % (36.0-46.0); Hemoglobin 12.1 g/dL (12.2-16.2); Lymphocytes # (auto) 0.9 10 ^3/uL (0.4-5.4); Lymphocytes % (auto) 6.4 % (10.0-50.0); Mean Corpuscular Hemoglobin 29.9 pg (28.0-32.0); Mean Corpuscular Hgb Conc. 33.2 g/dL (32.0-36.0); Mean Corpuscular Volume 90.1 fL (80.0-100.0); Monocytes # (auto) 0.8 10 ^3/uL (0-1.3); Monocytes % (auto) 5.3 % (0.0-12.0); Neutrophils # (auto) 12.7 10 ^3/uL (1.6-8.6); Neutrophils % (auto) 88.1 % (37.0-80.0); Platelet Count (auto) 244 10^3/uL (140-450); Red Blood Cells 4.06 10^6/uL (4.0-5.20); Red Cell Distribution Width 13.5 % (11.8-14.3); White Blood Cell 14.4 10^3/uL (4.4-10.8)
[2024-04-19 07:18] LABS: Alanine Aminotransferase 10 U/L (7-40); Albumin 3.9 g/dL (3.2-4.8); Alkaline Phosphatase 47 U/L (46-116); Anion Gap 8 (5-15); BUN/Creatinine Ratio 20.3 (10.0-20.0); Bilirubin, Total 0.4 mg/dL (0.2-1.0); Blood Urea Nitrogen 12 mg/dL (9-23); Calcium 9.1 mg/dL (8.7-10.4); Carbon Dioxide 25 mmol/L (20-31); Chloride 107 mmol/L (98-107); Glucose 105 mg/dL (74-106); Sodium 140 mmol/L (136-145); Total Protein 6.1 g/dL (5.7-8.2)
[2024-04-19 07:19] LABS: Aspartate Aminotransferase 9 U/L (13-40)
[2024-04-19] MEDS: cefTRIAXone 1GM/50ML D5W 50 ML IV SCH (08:35)
--- NOTE | 2024-04-19 10:09 | DVHPN2 ---
Progress Note Date Seen: Apr 19, 2024 Medical Necessity Reason Pt with a Central, PICC or Fol: No Objective vital signs Vital Sign Date Time Temp Pulse Resp B/P (MAP) Pulse Ox O2 Delivery O2 Flow Rate FiO2 04/19/24 09:00 98.1 73 20 102/7 (38) 93 98.1 04/19/24 08:00 Room Air* 0 21 Total Intake and Output 04/18/24 04/18/24 04/19/24 15:00 23:00 07:00 Intake Total 125 ml 300 ml 100 ml Output Total 200 ml 200 ml Balance 125 ml 100 ml -100 ml medications Current Medications Medications Dose Ordered Sig/Antonio Route Start Time Stop Time Status Last Admin Dose Admin Acetaminophen 650 mg TID PO 04/17/24 22:00 Ketorolac Tromethamine 30 mg TID IV 04/17/24 22:00 04/22/24 21:59 04/19/24 05:00 30 MG Metronidazole 100 ml @ 100 mls/hr Q8HR IV 04/18/24 06:00 04/19/24 05:00 100 MLS/HR Ceftriaxone Sodium 50 ml @ 100 mls/hr DAILY@09 IV 04/19/24 09:00 04/19/24 08:35 100 MLS/HR Morphine Sulfate 1 mg Q6HP PRN IV 04/18/24 01:15 04/19/24 04:20 1 MG laboratory and microbiology Laboratory Tests 04/19/24 05:31 Test 04/19/24 05:31 Range/Units Serum Glucose 105 74-106 mg/dL Microbiology Date/Time Source Procedure Growth Status 04/18/24 10:30 Nose MRSA Screen - Final Complete Problem List/Assessment/Plan Problem List/Assessment/Plan AFEBRILE VSS POD 1 S/P RIH REPAIR WOUND HEALING NO RECURRENCE ABD SOFT NO BM FLATUS + NO COMPLICATIONS CLAMP NG ALLOW ICE CHIPS Plan discussed with: Patient My Orders My Orders Orders - MAGNUS FLORES MD Procedure Category Date Status Time Npo (Nothing By DIET 04/18/24 Transmitted Mouth) Diet Dinner MAGNUS FLORES MD Apr 19, 2024 10:09
--- NOTE | 2024-04-19 16:48 | DVHPN2 ---
Subjective 04/19-surgery evaluated this morning has clamped NG tube and given I steps. We will continue to follow up. Patient feels well. Reviewed: H&P Changes from previous H/P or p: No Changes General: Per HPI Eyes: No Pain, No Vision change, No Conjunctivae inflammation, No Eyelid inflammation, No Other, No Redness ENT: No Ear pain, No Ear discharge, No Nose pain, No Nose discharge, No Nose congestion, No Mouth pain, No Mouth swelling, No Throat pain, No Throat swelling, No Other Cardiovascular: No Chest Pain, No Palpitations, No Orthopnea, No Paroxysmal Noc. Dyspnea, No Edema, No Lt Headedness, No Other Respiratory: No Cough, No Dry, No Shortness of breath, No SOB with excertion, No Wheezing, No Hemoptysis, No Pleuritic Pain, No Sputum, No Other Gastrointestinal: No Nausea, No Vomiting, No Abdominal Pain, No Diarrhea, No Constipation, No Melena, No Hematochezia, No Other Genitourinary: No Dysuria, No Frequency, No Incontinence, No Hematuria, No Retention, No Other Musculoskeletal: No other, No neck pain, No shoulder pain, No arm pain, No back pain, No hand pain, No leg pain, No foot pain Skin: No Rash, No Lesions, No Jaundice, No Bruising, No Other Objective Vitals Vital Signs Date Time Temp Pulse Resp B/P (MAP) Pulse Ox O2 Delivery O2 Flow Rate FiO2 04/19/24 16:30 70 16 105/73 04/19/24 13:00 98.2 93 98.2 04/19/24 08:00 Room Air* 0 21 Intake/Output Intake and Output 04/19/24 07:00 Intake Total 525 ml Output Total 400 ml Balance 125 ml Intake Oral 0 ml IV Total 525 ml Other 400 ml # Voids 6 Exam General: Overweight, afebrile, palor, mucosae are moist Cardiovascular: Regular S1 and S2. No murmurs, gallops or rubs. No JVD elevation. No pedal edema Respiratory: Normal B/L air entry on room air. Clear lung sounds on auscultation Abdomen: Soft, nontender, nondistended, normoactive bowel sounds, no rebound tenderness, no organomegaly, no masses. NG tube seen. Abdominal packing and dressing is CDI. Abdominal binder present Genitourinary: Deferred MSK/skin: Mobilizes 4 limbs. Skin is dry and warm Neurological: No motor, no sensitive deficits, normal speech. Pupils are isocoric and reactive. Psych/Mental Status: A/Ox4 Medications Current Medications Medications Dose Ordered Sig/Antonio Route Start Time Stop Time Status Last Admin Dose Admin Acetaminophen 650 mg TID PO 04/17/24 22:00 Ketorolac Tromethamine 30 mg TID IV 04/17/24 22:00 04/22/24 21:59 04/19/24 13:49 30 MG Metronidazole 100 ml @ 100 mls/hr Q8HR IV 04/18/24 06:00 04/19/24 13:48 100 MLS/HR Ceftriaxone Sodium 50 ml @ 100 mls/hr DAILY@09 IV 04/19/24 09:00 04/19/24 08:35 100 MLS/HR Morphine Sulfate 1 mg Q6HP PRN IV 04/18/24 01:15 04/19/24 16:30 1 MG Laboratory Results Laboratory Tests 04/19/24 05:31 Chemistry Test 04/19/24 05:31 Albumin 3.9 g/dL (3.2-4.8) Calcium Level 9.1 mg/dL (8.7-10.4) Total Protein 6.1 g/dL (5.7-8.2) LFT Test 04/19/24 05:31 Alanine Aminotransferase (ALT) 10 U/L (7-40) Alkaline Phosphatase 47 U/L (46-116) Aspartate Amino Transferase (AST) 9 U/L (13-40) L Total Bilirubin 0.4 mg/dL (0.2-1.0) Urinalysis Test 04/18/24 10:30 Urine Color Yellow (Yellow) Urine Clarity Clear (Clear) Urine pH 6.0 (5.0-9.0) Urine Specific [place] 1.021 (1.001-1.035) Urine Protein Negative (Negative) Urine Ketones Negative (Negative) Urine Blood Negative /uL (Negative) Urine Nitrite Negative (Negative) Urine Bilirubin Negative (Negative) Urine Urobilinogen Normal mg/dL (Negative) Urine Leukocyte Esterase Negative /uL (Negative) Urine RBC <1 /hpf (0 - 4) Urine Microscopic WBC < 1 /HPF (0-5) Urine Squamous Epithelial Cells Few /hpf (<5) Urine Bacteria None seen /hpf (None Seen) Urine Mucus Few (None Seen) Urine Glucose Normal mg/dL (Normal) Microbiology Microbiology Date/Time Source Procedure Growth Status 04/18/24 10:30 Nose MRSA Screen - Final Complete Labs and/or images reviewed: Labs reviewed by me Assessment/Plan Assessment/Plan 04/19-surgery evaluated this morning has clamped NG tube and given I steps. We will continue to follow up. Patient feels well. Incarcerated right inguinal hernia s/p open repair with mesh CT scan showed Moderate size right inguinal hernia containing intra-abdominal fat and a segment of small bowel loop. There is suspected small bowel incarceration with dilated fluid-filled small bowel loop immediately proximal to the herniating bowel. There are additional mildly prominent small-bowel loops in the mid and left abdomen. Findings are likely related to developing obstruction. Underwent hernia repair by Dr. Foreman 04/18 with mesh. No drain. No complication. Estimated blood loss 10 cc Continue IV ceftriaxone and IV metronidazole starting 04/18 IV Toradol and IV morphine for pain control Right-sided ovarian cyst CT scan showed 2. 5.2 x 3.9 cm cystic structure in the right posterior pelvis likely an ovarian cyst. Outpatient OBGYN follow up Hypertension - controlled Monitor Morbid obesity Counseled regarding lifestyle measures for more than 29 minutes DVT prophylaxis: SCDs Goals of care discussed with the patient for more than 23 minutes, full code status Plan discussed with the patient in which all questions have been answered Plan discussed with: Patient Date of Service: Apr 19, 2024 Billing Provider: KIMBERLEY LEMUS MD Common Visit Codes: [id number] INP/OBS CARE(HIGH) KIMBERLEY LEMUS MD Apr 19, 2024 16:48
[2024-04-20] VITALS (8 sets, daily range): BP systolic 108–118; BP diastolic 62–75; PULSE 60–94; RESP 16–20; TEMP 97.9–98.5; O2SAT 93–96
[2024-04-20 06:45] LABS: Anion Gap 6 (5-15); Carbon Dioxide 28 mmol/L (20-31); Chloride 106 mmol/L (98-107); Potassium 3.8 mmol/L (3.5-5.1); Sodium 140 mmol/L (136-145)
[2024-04-20 06:46] LABS: Calcium 8.9 mg/dL (8.7-10.4)
[2024-04-20 06:51] LABS: BUN/Creatinine Ratio 19.7 (10.0-20.0); Blood Urea Nitrogen 13 mg/dL (9-23); Glucose 80 mg/dL (74-106)
[2024-04-20 06:52] LABS: Basophils # (auto) 0 10 ^3/uL (0-0.2); Basophils % (auto) 0.4 % (0.0-2.0); Eosinophils # (auto) 0.4 10 ^3/uL (0-0.8); Eosinophils % (auto) 4.5 % (0.0-7.0); Hematocrit 32.4 % (36.0-46.0); Lymphocytes # (auto) 2.1 10 ^3/uL (0.4-5.4); Lymphocytes % (auto) 24.3 % (10.0-50.0); Mean Corpuscular Hemoglobin 30.7 pg (28.0-32.0); Mean Corpuscular Hgb Conc. 34.1 g/dL (32.0-36.0); Mean Corpuscular Volume 89.9 fL (80.0-100.0); Monocytes # (auto) 0.8 10 ^3/uL (0-1.3); Monocytes % (auto) 8.7 % (0.0-12.0); Neutrophils # (auto) 5.3 10 ^3/uL (1.6-8.6); Neutrophils % (auto) 62.1 % (37.0-80.0); Nucleated Red Blood Cells % 0.1 %; Platelet Count (auto) 187 10^3/uL (140-450); Red Cell Distribution Width 13.9 % (11.8-14.3); White Blood Cell 8.6 10^3/uL (4.4-10.8)
[2024-04-20] MEDS: ERGOCALCIFEROL 50,000 UNIT(1.25MG) CAP PO SCH (08:17)
--- NOTE | 2024-04-20 13:02 | DVHPNRES ---
Progress Note Date Seen: Apr 20, 2024 Resident Creating Document: LULA KNOX RESIDENT Medical Necessity Reason Pt with a Central, PICC or Fol: No Subjective Review of Systems his is a 43-year-old female patient with PMH HX of right inguinal hernia, ovarian cyst and hypertension who presents to the ER with a chief complaint of right groin pain. She was diagnosed with right inguinal hernia 2 months back, was scheduled for hernia repair in May. She has experienced worsening pain in the right groin for the past couple of days and progressive bulging. Denies any systemic symptoms. Patient was seen by the surgeon, who recommended surgery and patient was scheduled for mesh repair 04/18. PMH: See above PSH: 3 C sections Medications: Lisinopril 40 mg daily Social history: Denies smoking/alcohol/drug use Patient seen and examined at bedside. Reports feeling better. No acute distress. Dressing is dry clean and intact. Passing gas but no bowel movement Objective vital signs Vital Sign Date Time Temp Pulse Resp B/P (MAP) Pulse Ox O2 Delivery O2 Flow Rate FiO2 04/20/24 09:00 97.9 94 20 114/65 (81) 95 97.9 04/20/24 08:00 Room Air* 0 21 Total Intake and Output 04/19/24 04/19/24 04/20/24 15:00 23:00 07:00 Intake Total 150 ml 270 ml 1000 ml Output Total 400 ml Balance 150 ml -130 ml 1000 ml medications Current Medications Medications Dose Ordered Sig/Antonio Route Start Time Stop Time Status Last Admin Dose Admin Acetaminophen 650 mg TID PO 04/17/24 22:00 04/20/24 05:28 650 MG Ketorolac Tromethamine 30 mg TID IV 04/17/24 22:00 04/22/24 21:59 04/20/24 05:28 30 MG Metronidazole 100 ml @ 100 mls/hr Q8HR IV 04/18/24 06:00 04/20/24 05:28 100 MLS/HR Ceftriaxone Sodium 50 ml @ 100 mls/hr DAILY@09 IV 04/19/24 09:00 04/20/24 08:16 100 MLS/HR Morphine Sulfate 1 mg Q6HP PRN IV 04/18/24 01:15 04/20/24 08:27 1 MG Ergocalciferol 50,000 unit Q7D PO 04/20/24 07:00 2/16/25 08:17 50,000 UNIT Examination Young obese female lying in bed, in no acute distress. General: Overweight, afebrile, palor, mucosae are moist Cardiovascular: Regular S1 and S2. No murmurs, gallops or rubs. No JVD elevation. No pedal edema Respiratory: Normal B/L air entry on room air. Clear lung sounds on auscultation Abdomen: Soft, nontender, nondistended, normoactive bowel sounds, no rebound tenderness, no organomegaly, no masses. NG tube seen. Dressing dry clean and intact Genitourinary: Deferred MSK/skin: Mobilizes 4 limbs. Skin is dry and warm Neurological: No motor, no sensitive deficits, normal speech. Pupils are isocoric and reactive. Psych/Mental Status: A/Ox4 laboratory and microbiology Laboratory Tests 04/20/24 05:10 Test 04/20/24 05:10 Range/Units Serum Glucose 80 74-106 mg/dL Microbiology Date/Time Source Procedure Growth Status 04/18/24 10:30 Nose MRSA Screen - Final Complete Labs and/or images reviewed: Labs reviewed by me, Image(s) reviewed by me Problem List/Assessment/Plan Problem List/Assessment/Plan Incarcerated right inguinal hernia s/p open repair with mesh CT scan showed Moderate size right inguinal hernia containing intra-abdominal fat and a segment of small bowel loop. There is suspected small bowel incarceration with dilated fluid-filled small bowel loop immediately proximal to the herniating bowel. There are additional mildly prominent small-bowel loops in the mid and left abdomen. Findings are likely related to developing obstruction. Underwent hernia repair by Dr. Foreman 04/18 with mesh. No drain. No complication. Estimated blood loss 10 cc Continue IV ceftriaxone and IV metronidazole starting 04/18 IV Toradol and IV morphine for pain control Right-sided ovarian cyst CT scan showed 2. 5.2 x 3.9 cm cystic structure in the right posterior pelvis likely an ovarian cyst. Outpatient OBGYN follow up Hypertension - controlled Monitor Morbid obesity Counseled regarding lifestyle measures for more than 29 minutes Vitamin-D deficiency Supplemented DVT prophylaxis: SCDs Diet: Full liquid Goals of care discussed with the patient for more than 23 minutes, full code status Plan discussed with the patient in which all questions have been answered Case discussed with Dr. Duque. Plan discussed with: Patient My Orders My Orders Orders - LULA KNOX Procedure Category Date Status Time Ergocalciferol PHA 04/20/24 In Process (Vitamin D 50,000 07:00 Date of Service: Apr 20, 2024 Billing Provider: KIMBERLEY LEMUS MD Common Visit Codes: [id number] INP/OBS CARE(HIGH) LULA KNOX Apr 20, 2024 13:02 KIMBERLEY LEMUS MD Apr 21, 2024 00:23
[2024-04-21 01:00] VITALS: BP 112/71; PULSE 60; RESP 18; TEMP 98; O2SAT 96
[2024-04-21 05:00] VITALS: BP 111/71; PULSE 62; RESP 18; TEMP 98.1; O2SAT 94
[2024-04-21 08:00] VITALS: PULSE 68; RESP 18; O2SAT 96
[2024-04-21 08:50] VITALS: BP 117/82; PULSE 67; RESP 16; TEMP 98.2; O2SAT 94
--- NOTE | 2024-04-21 12:33 | DVHDSRES ---
Discharge Summary Date of Admission Resident Creating Document: LULA KNOX RESIDENT Apr 17, 2024 at 21:39 Date of Discharge: Apr 21, 2024 Labs/Diagnostic Data: Laboratory Results Test 04/20/24 05:10 04/19/24 05:31 04/18/24 10:30 04/18/24 06:14 White Blood Count 8.6 10^3/uL (4.4-10.8) Red Blood Count 3.60 10^6/uL (4.0-5.20) Hemoglobin 11.0 g/dL (12.2-16.2) Hematocrit 32.4 % (36.0-46.0) Mean Corpuscular Volume 89.9 fL (80.0-100.0) Mean Corpuscular Hemoglobin 30.7 pg (28.0-32.0) Mean Corpuscular Hemoglobin Concent 34.1 g/dL (32.0-36.0) Red Cell Distribution Width 13.9 % (11.8-14.3) Platelet Count 187 10^3/uL (140-450) Mean Platelet Volume 9.3 fL (6.9-10.8) Neutrophils (%) (Auto) 62.1 % (37.0-80.0) Lymphocytes (%) (Auto) 24.3 % (10.0-50.0) Monocytes (%) (Auto) 8.7 % (0.0-12.0) Eosinophils (%) (Auto) 4.5 % (0.0-7.0) Basophils (%) (Auto) 0.4 % (0.0-2.0) Neutrophils # (Auto) 5.3 10 ^3/uL (1.6-8.6) Lymphocytes # (Auto) 2.1 10 ^3/uL (0.4-5.4) Monocytes # (Auto) 0.8 10 ^3/uL (0-1.3) Eosinophils # (Auto) 0.4 10 ^3/uL (0-0.8) Basophils # (Auto) 0 10 ^3/uL (0-0.2) Nucleated Red Blood Cells 0.1 % Sodium Level 140 mmol/L (136-145) Potassium Level 3.8 mmol/L (3.5-5.1) Chloride Level 106 mmol/L (98-107) Carbon Dioxide Level 28 mmol/L (20-31) Anion Gap 6 (5-15) Blood Urea Nitrogen 13 mg/dL (9-23) Creatinine 0.66 mg/dL (0.550-1.02) Glomerular Filtration Rate Calc 112 mL/min (>90) BUN/Creatinine Ratio 19.7 (10.0-20.0) Serum Glucose 80 mg/dL (74-106) Calcium Level 8.9 mg/dL (8.7-10.4) Total Bilirubin 0.4 mg/dL (0.2-1.0) Aspartate Amino Transferase (AST) 9 U/L (13-40) Alanine Aminotransferase (ALT) 10 U/L (7-40) Alkaline Phosphatase 47 U/L (46-116) Total Protein 6.1 g/dL (5.7-8.2) Albumin 3.9 g/dL (3.2-4.8) Vitamin B12 Level 410 pg/mL (211-911) Vitamin D 25-Hydroxy 27.8 ng/mL (30.0-100) Urine Color Yellow (Yellow) Urine Clarity Clear (Clear) Urine pH 6.0 (5.0-9.0) Urine Specific [place] 1.021 (1.001-1.035) Urine Protein Negative (Negative) Urine Ketones Negative (Negative) Urine Blood Negative /uL (Negative) Urine Nitrite Negative (Negative) Urine Bilirubin Negative (Negative) Urine Urobilinogen Normal mg/dL (Negative) Urine Leukocyte Esterase Negative /uL (Negative) Urine RBC <1 /hpf (0 - 4) Urine Microscopic WBC < 1 /HPF (0-5) Urine Squamous Epithelial Cells Few /hpf (<5) Urine Bacteria None seen /hpf (None Seen) Urine Mucus Few (None Seen) Urine Glucose Normal mg/dL (Normal) Magnesium Level 1.8 mg/dL (1.6-2.6) Beta HCG, Quantitative 0.5 mIU/mL (1.5-4.2) Test 04/17/24 12:17 Prothrombin Time 11.4 sec (9.3-11.8) Prothrombin Time INR 1.08 (0.9-1.15) Activated Partial Thromboplast Time 26.6 SEC (24.5-34.5) Thyroid Stimulating Hormone (TSH) 0.80 uIU/mL (0.55-4.78) Other Laboratory Tests 04/20/24 05:10 Brief Hx & Hospital Course: his is a 43-year-old female patient with PMH HX of right inguinal hernia, ovarian cyst and hypertension who presents to the ER with a chief complaint of right groin pain. She was diagnosed with right inguinal hernia 2 months back, was scheduled for hernia repair in May. She has experienced worsening pain in the right groin for the past couple of days and progressive bulging. Denies any systemic symptoms. During the hospitalization,CT scan showed Moderate size right inguinal hernia containing intra-abdominal fat and a segment of small bowel loop. There is suspected small bowel incarceration with dilated fluid-filled small bowel loop immediately proximal to the herniating bowel. There are additional mildly prominent small-bowel loops in the mid and left abdomen. Findings are likely related to developing obstruction. Patient was seen by the surgeon, who recommended surgery and patient was scheduled for mesh repair 04/18. Patient underwent open repair of right inguinal hernia with mesh on 04/[address] Foreman. She was kept NPO later that night, patient was started on clear liquid diet and diet was advanced as tolerated. Patient did not have any nausea or vomiting. Dressing was dry/clean/intact. NG was discontinued. Patient had a bowel movement 04/21, diet was advanced to soft. CT scan showed 2. 5.2 x 3.9 cm cystic structure in the right posterior pelvis likely an ovarian cyst.. Outpatient follow up was recommended. 04/21-patient is tolerating soft diet, no acute symptoms, hemodynamically and clinically stable and therefore is being discharged home. Patient agrees with the discharge clinic Discharge instructions: Continue Tylenol for pain control Follow up with surgeon outpatient within 7 days Follow up with primary care physician within 7 days, follow up with serial ultrasound for ovarian cyst Follow up with the discharge clinic appointment Consults/Reason for consult Surgery consulted for incarcerated hernia Operations or Procedures DATE OF SURGERY: 04/18/2024 PREOPERATIVE DIAGNOSIS: Incarcerated right inguinal hernia. She had an indirect and direct hernia. POSTOPERATIVE DIAGNOSIS: Incarcerated right inguinal hernia. She had an indirect and direct hernia. PROCEDURE: Open repair of this right inguinal hernia with mesh. SURGEON: Ulisses Foreman MD. CLAM DIGGER: None. ANESTHESIA: General. ESTIMATED BLOOD LOSS: Close to 10 mL. DRAINS: No drains were used. COMPLICATIONS: No complication encountered. DESCRIPTION OF PROCEDURE: The patient was prepped and draped in the usual sterile fashion in a supine position and an oblique incision was applied above the groin crease in the right lower quadrant and was taken down to the deeper tissues. The external oblique fascia was divided in an oblique fashion allowing the round ligament structures to be exposed. The indirect hernia sac along with the lipoma was identified. The lipoma was removed and submitted for pathology. The direct hernia was noted as well and the small-sized mesh plug technique was used to repair this. The plug was placed into the indirect location after the contents of the hernia reduced back into the abdomen and the plug was secured with a Prolene suture to the inguinal ligament below and the conjoint tendon above and the posterior wall of the direct hernia was sutured with the Prolene suture as well and reinforced with the flat mesh that was secured in place using the pubic tubercle fascia medially, the conjoint tendon above, the inguinal ligament below, around the round ligament structures and then suturing the mesh to the internal oblique muscle superiorly and the inguinal ligament below as well. With this being done, irrigation performed. Hemostasis was secured. The round ligament structures were re-placed back in their anatomic location without any compromise and no injuries occurred to the major nerves or vessels in the vicinity and lidocaine was infiltrated in the vicinity and then the sponge count, needle count was reported correct. The wound was brought together using Vicryl suture for the subcutaneous tissues and the skin was brought together using 3-0 Monocryl suture in a subcuticular fashion. Surgical glue was applied. Steri-Strips were applied. Dressing was applied. The patient tolerated the procedure well and was taken back to recovery room in a stable condition. Ulisses Foreman MD RG/[place] TID: [id number] RECEIPT: [id number] Condition at Discharge: Stable Final Diagnosis/Problems List Incarcerated right inguinal hernia s/p open repair with mesh Right-sided ovarian cyst Hypertension Mild normocytic anemia Morbid obesity Vitamin-D deficiency Discharge Disposition: Home Discharge Instruct/Medications Diet: See Comment Diet comment: continue soft diet Activity: Light activity Follow Up/Referral: Follow up with surgeon outpatient within 7 days Follow up with primary care physician within 7 days, follow up with serial ultrasound for ovarian cyst Follow up with the discharge clinic appointment Medications: Per EMR Discharge Statement: "Patient was advised to return to the ER or call 911 if any headaches, dizziness, shortness of breath, chest pain, abdominal pain, bleeding, fevers, or worsening of medical condition. Patient was counseled about treatment plan, medications, possible side effects, patientverbalized understanding. All questions were answered to the best of my ability. This discharge took greater then 30 minutes in planning, reviewing documentation, counseling the patient, and discussing with other team members." ASSESSMENT ASSESSMENT Assessment Incarcerated right inguinal hernia s/p open repair with mesh LULA KNOX RESIDENT Apr 21, 2024 12:33
[2024-04-21 13:00] VITALS: BP 128/92; PULSE 60; RESP 17; TEMP 98.3; O2SAT 96
[2024-04-21 13:26] VITALS: BP 124/69; PULSE 63; RESP 15; TEMP 97.9; O2SAT 96
== END 2024-04-21 14:30 | disposition home or self-care (01) | DRG 352 ==
LOC: EEVIPCON 11:02 → ER 11:02 → OVERFLOW 21:39 → CENTRAL 23:10
PROVIDERS: ADMIT Student in an Organized Health Care Education/Training Program; ATTEND Emergency Medicine
PROC: 0YU50JZ Supplement Right Inguinal Region with Synthetic Substitute, Open Approach (ICD-10-PCS; principal; 2024-04-18 12:42)
DX: K40.30 Unilateral inguinal hernia, with obstruction, without gangrene, not specified as recurrent (principal); E66.01 Morbid (severe) obesity due to excess calories; D17.79 Benign lipomatous neoplasm of other sites; N83.201 Unspecified ovarian cyst, right side; D64.9 Anemia, unspecified; E55.9 Vitamin D deficiency, unspecified; I10 Essential (primary) hypertension; Z79.1 Long term (current) use of non-steroidal anti-inflammatories (NSAID); Z79.2 Long term (current) use of antibiotics; Z79.899 Other long term (current) drug therapy; Z68.34 Body mass index [BMI] 34.0-34.9, adult; Z83.3 Family history of diabetes mellitus
CPT/HCPCS: 36415; 71045; 71046; 74177; 80048; 80053; 81001; 82306; 82607; 83735; 84443; 84702; 85025; 85610; 85730; 86850; 86900; 86901; 87081; 96365; 96375; G0378; J0131; J0330; J0690; J1100; J1885; J2250; J2405; J2704; J3490

== ENCOUNTER 2024-09-29 09:18 | Emergency (ER) | payer BC, MEDICAID ==
[~2024-09-29] VITALS: Ht 175.3 cm; Wt 104.8 kg
[~2024-09-29 09:18] MED LIST changes: -ACET-1304 PO; -ACET500T58 PO; -CEPH-510 PO; -CEPH500T PO; -NAP500T PO; -PHEN95TA10 PO
--- NOTE | 2024-09-29 09:44 | ED.PDOC ---
SOB-HPI HPI Comments 44 year old female with a past medical history of hypertension presents to the emergency department with a chief complaint of cough onset 1 day. Patient states she began experiencing productive cough for the past day as well as nasal congestion. Patient was seen at urgent care yesterday, tested negative for COVID and strep throat. She came to ED today due to persistent cough, noticed wheezing. 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 No other symptoms or modifying factors present at this time. COVID-19 exposure: at work COVID tested negative 1 day ago Denies fevers chills night sweats unintentional weight loss Denies persistent chest pain, shortness of breath, leg swelling Denies history of asthma nor any breathing conditions Denies history of pneumonia Denies recent international travel Chief Complaint: Cough Time Seen by MD: 09:35 Primary Care Provider: UNKNOWN Reviewed notes: Nurses Notes, Medications, Allergies Information Source: Patient Mode of Arrival: Ambulatory Severity: Moderate Timing: Days Duration: Since onset Context: At Rest PE Risk Factors: None History of: None Prehospital treatment: None Modifying Factors: Nothing Associated Signs and Symptoms: Wheeze, Cough, Nasal Congestion If cough with SOB: Productive Past Medical History PAST MEDICAL HISTORY: HTN 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 Family History Family History: Unknown Social History Smoker: Non-Smoker Alcohol: Denies ETOH Use Drugs: Denies Drug Use Lives In: Home All Other Systems: Reviewed and Negative (as per HPI) Physical Exam General Appearance: Normal HEENT: Normal ENT Inspection, Pharynx Normal, TMs Normal, Other (no nasal flare, no external retractions) Neck: Full Range of Motion, Non-Tender, Normal, Normal Inspection Respiratory: Chest Non-Tender, Lungs Clear, No Accessory Muscle Use, No Respiratory Distress, Normal Breath Sounds Cardiovascular: No Murmur, No Gallop, Regular Rate/Rhythm Breast Exam: Deferred Gastrointestinal: No Organomegaly, Non Tender, No Pulsatile Mass, Normal Bowel Sounds, Soft Genitalia: Deferred Pelvic: Deferred Rectal: Deferred Extremities: No calf tenderness, Normal capillary refill, Normal inspection, Normal range of motion, Non-tender, No pedal edema Musculoskeletal : Apperance: Normal Neurologic: Alert, turnaround engineer II-XII nml as Tested, No Motor Deficits, Normal Affect, Normal Mood, No Sensory Deficits Cerebellar Function: Normal Reflexes: Normal Skin: Dry, Normal Color, Warm Lymphatic: No Adenopathy Was a procedure done? Was a procedure done?: No Differential Dx Differential Diagnosis: Bronchitis, Pneumonia, URI X-Ray, Labs, Meds, VS Vital Signs Date Time Temp Pulse Resp B/P (MAP) Pulse Ox O2 Delivery O2 Flow Rate FiO2 09/29/24 10:16 90 17 99 Room Air 09/29/24 10:16 98.7 90 16 121/72 (88) 95 98.7 09/29/24 09:39 98.5 90 16 127/72 (90) 97 98.5 Lab Test 09/29/24 09:44 Range/Units Urine Color Light-yellow Yellow Urine Clarity Clear Clear Urine pH 5.5 5.0-9.0 Urine Specific Wells 1.020 1.001-1.035 Urine Protein Negative Negative Urine Ketones Negative Negative Urine Blood 1+ H Negative /uL Urine Nitrite Negative Negative Urine Bilirubin Negative Negative Urine Urobilinogen Normal Negative mg/dL Urine Leukocyte Esterase Negative Negative /uL Urine RBC 3 0 - 4 /hpf Urine Microscopic WBC 1 0-5 /HPF Urine Squamous Epithelial Cells Few <5 /hpf Urine Bacteria None seen None Seen /hpf Urine Glucose Normal Normal mg/dL [place] [id number] Ph: [phone] DIAGNOSTIC IMAGING Diagnostic Imaging Report : [id number] Signed PATIENT: NICKIE ANGELCCT: [id number] UNIT: [id number] : 1980 LOC: ER ROOM / BED: / AGE / SEX: 44 / F ADM STATUS: REG ER SERVICE [id number] ORDERING PHYSICIAN: ALMA ROSA POLK NP PROCEDURE(s): CXR2 - CHEST TWO VIEWS ROUTINE REASON: r/o pna ORDER NUMBER(s): [id number], ACCESSION NUMBER(s): [id number] XY CHEST TWO VIEWS ROUTINE CLINICAL HISTORY: r/o pna COMPARISON: XY CHEST TWO VIEWS ROUTINE on DOS: 04/17/24, CHEST TWO VIEWS ROUTINE on DOS: 10/15/21, CXR2 on DOS: 10/15/21 TECHNIQUE: Frontal and lateral view of the chest was obtained FINDINGS: Lines and Tubes: None Lungs: No focal consolidation. Pleura: No effusion. No pneumothorax. Cardiomediastinal contours: Unremarkable Bones: No acute osseous abnormality. IMPRESSION: No acute cardiopulmonary disease. ATED BY: KAMAR SCOTT MD DICTATED DATE/TIME: 09/29/24 1013 SIGNED BY: KAMAR SCOTT MD SIGNED DATE/TIME: 09/29/24 1013 CC: X-Ray, Labs, Meds, VS Comment 44 year old female with a past medical history of hypertension presents to the emergency department with a chief complaint of cough onset 1 day. Patient arrives alert and oriented, ABC's intact, afebrile, vital signs stable, saturating well in room air Urinalysis was ordered to rule out UTI or hematuria. Diagnostic imaging ordered by me and results interpreted by radiology : CXR On presentation, the patient is afebrile and has stable vital signs. The patient is overall well-appearing nontoxic on exam. On physical exam, respirations even and unlabored, clear to auscultation bilaterally. Oxygen stable on room air. Chest x-ray was obtained and interpreted independently by myself as not showing focal consolidation or lobar pneumonia Low suspicion of strep pharyngitis given physical exam findings and patient's presenting symptoms No signs of meningismus on exam Overall, the patient is well hydrated and nontoxic. Plan for symptomatic control for fever and pain as needed. The patient was able to tolerate p.o. intake in the ED. at this time, patient is safe for discharge home. The exam findings and plan discussed. We will discharge home with PCP follow up and strict return precautions. Discussed that cough can linger up to 6 weeks after viral URI Supportive care and return precautions discussed Recommended vitamin C, rest, handwashing, and symptomatic care. Expect 2-week course with possibly of cough lingering up to 6 weeks. N onpharmacological remedies for fluids has been recommended as well Patient is stable for discharge at this time. External notes reviewed. Test results and diagnostic imaging interpreted. All diagnostic findings, discharge care, education and instructions provided Follow-up with PCP in 2 to 3 days Patient verbalized understanding and agreed to treatment plan Vital signs stable, afebrile, no acute distress noted Patient ambulatory with strong steady gait Advised to return precautions for any new or worsening symptoms, return to ER immediately for re-evaluation Patient is aware that the purpose of this visit was for an acute medical emergency requiring emergent stabilization. Chronic conditions, including malignancies have not been ruled out. Patient is instructed to follow up with PCP as directed and discharge instructions for continued care and workup. If unable to arrange follow-up, patient is to return to the emergency department for reassessment. Patient (parent or legal guardian if applicable) was given verbal and written discharge instructions and acknowledges understanding. Additional MDM Review of External, Non-ED records: External records reviewed. Discussion with independent historian (EMS, family) history obtained from the patient/parents (if applicable) at bedside Chronic conditions affecting care: None Social determinants of health affecting care: None Consideration of admission (observation or admission): I considered escalation of care to admission for this patient, however given the reassuring workup, the patient is safe for outpatient management. Time of 1ST Reevaluation: 10:05 Reevaluation 1ST: Unchanged Patient Education/Counseling: Diagnosis, Treatment Family Education/Counseling: No Family Present SEPSIS Sepsis Screen Physician Orders Chest Two Views Routine (09/29/24 09:44) Vital Signs Date Time Temp Pulse Resp B/P (MAP) Pulse Ox O2 Delivery O2 Flow Rate FiO2 09/29/24 10:16 90 17 99 Room Air 09/29/24 10:16 98.7 90 16 121/72 (88) 95 98.7 09/29/24 09:39 98.5 90 16 127/72 (90) 97 98.5 Departure 1 Departure Time of Disposition: 10:37 Impression: Primary Impression: Viral syndrome Disposition: 01 HOME / SELF CARE / HOMELESS Condition: Stable e-Prescriptions Guaifenesin (Mucinex) 600 Mg Tab 1 TAB PO BID for 7 Days, #14 TAB 0 Refills Prov: ALMA ROSA POLK [employer]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 09/29/24 Promethazine-Dm (Promethazine Dm 6.25-15 mg/5Ml) 1 Deborah Deborah 5 ML PO TIDP PRN for 10 Days, #150 ML 0 Refills Prov: ALMA ROSA POLK 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 09/29/24 Doxycycline Hyclate (DOXYCYCLINE HYCLATE) 100 Mg Tab 1 TAB PO BID for 7 Days, #14 TAB 0 Refills Prov: ALMA ROSA POLK SCRAP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 09/29/24 Critical Care Note Critical Care Time?: No Stability Stability form required: No Heart Score Heart Score: Heart Score Response (Comments) Value History N/A 0 EKG N/A 0 Age N/A 0 Risk Factors N/A 0 Troponin N/A 0 Total 0 I personally scribed for ALMA ROSA POLK NP ([email or web address]) on 09/29/24 at 09:44. Electronically submitted by Carito Miles ([email or web address]). I personally scribed for ALMA ROSA POLK NP ([email or web address]) on 09/29/24 at 10:22. Electronically submitted by Carito Miles ([email or web address]). I personally scribed for ALMA ROSA POLK NP ([email or web address]) on 09/29/24 at 10:35. Electronically submitted by Carito Miles ([email or web address]). ALMA ROSA POLK NP Sep 29, 2024 09:44
--- NOTE | 2024-09-29 10:15 | DVH ---
XY CHEST TWO VIEWS ROUTINE CLINICAL HISTORY: r/o pna COMPARISON: XY CHEST TWO VIEWS ROUTINE on DOS: 04/17/24, CHEST TWO VIEWS ROUTINE on DOS: 10/15/21, CXR2 on DOS: 10/15/21 TECHNIQUE: Frontal and lateral view of the chest was obtained FINDINGS: Lines and Tubes: None Lungs: No focal consolidation. Pleura: No effusion. No pneumothorax. Cardiomediastinal contours: Unremarkable Bones: No acute osseous abnormality. IMPRESSION: No acute cardiopulmonary disease.
[2024-09-29 10:16] VITALS: BP 121/72; PULSE 90; RESP 17; TEMP 98.7; O2SAT 99
[2024-09-29 10:28] LABS: Urine Protein, UAD Negative (Negative)
[2024-09-29] MEDS ORDERED: DOXY-286 PO (10:38)
[2024-09-29] MEDS ORDERED: GUAI600T78 PO (10:38)
[2024-09-29] MEDS ORDERED: PROM1SOL4 PO (10:38)
== END 2024-09-29 10:55 | disposition home or self-care (01) ==
LOC: EEVIPCON 09:24 → ER 09:24
DX: B34.9 Viral infection, unspecified (principal); I10 Essential (primary) hypertension; Z98.890 Other specified postprocedural states
CPT/HCPCS: 71046; 81001